=== PATIENT | male | born 1950 | race Caucasian/White ===

== ENCOUNTER 2017-10-11 08:31 | Inpatient (IN) ==
[2017-10-11] MEDS ORDERED: Ipratropium/Albuterol Neb 3 ML ONE ×2 (08:48→12:38)
[2017-10-11] MEDS ORDERED: Ipratropium/Albuterol Neb 3 ML IH ONE (08:53)
[2017-10-11 09:14] LABS: Basophils % 0.3 %; Eosinophils % 1.6 %; Hematocrit 43.7 % (37.5-50.1); Hemoglobin 13.1 g/dL (12.9-16.9); Immature Granulocytes % 0.5 % (0-4); Lymphocytes # 1.6 K/mcL (0.6-4.6); Lymphocytes % 10.1 %; Mean Corpuscular Hemoglobin 27.3 pg (28.0-33.3); Mean Corpuscular Volume 91.2 fL (83.0-100.0); Mean Platelet Volume 10.2 fL (9.4-12.4); Monocytes % 6.2 %; Platelet Count 342 K/mcL (140-400); Red Blood Count 4.79 M/mcL (4.19-5.50); Red Cell Distribution Width 12.7 % (11.5-14.5); Segmented Neutrophils % 81.3 %
[2017-10-11 09:15] LABS: Basophils # 0.1 K/mcL (0.0-0.2); Eosinophils # 0.3 K/mcL (0.0-0.6); Neutrophils # 12.5 K/mcL (1.6-8.9)
[2017-10-11 09:21] LABS: ABG Base Excess 12 mEq/L (-2 to 3); ABG HCO3 44 mEq/L (21-27); ABG Oxygen Saturation 93 % (95-98); ABG PCO2 95 mmHg (35-45); ABG PH 7.27 pH Units (7.32-7.45); ABG PO2 80 mmHg (85-104); ABG TCO2 46 mEq/L (20-26)
[2017-10-11] MEDS ORDERED: methylPREDNISolone 125 MG/2 ML VIAL IVP ONE (09:25)
[2017-10-11] MEDS ORDERED: Levofloxacin 750 MG/150 ML 750 MG/150 ML BAG IVPB ONE (09:27)
[2017-10-11 09:28] LABS: BUN/Creatinine Ratio 22 (6-26); Blood Urea Nitrogen 15 mg/dL (8-26); Chloride 97 mEq/L (98-109); Glucose 141 mg/dL (70-99); Osmolality,Calculated 303 (280-300); Potassium 3.7 mEq/L (3.5-4.5); Sodium 145 mEq/L (136-145); eGFR For African Americans > 60 (> 60); eGFR For Non-African Americans > 60 (> 60)
[2017-10-11 09:30] LABS: Carbon Dioxide 42 mEq/L (19-29)
[2017-10-11] MEDS ORDERED: Acetaminophen 325 MG TABLET PO PRN ×2 (09:41→12:38)
[2017-10-11] MEDS ORDERED: Naloxone 0.4 MG/ML INJ IVP PRN ×2 (09:41→12:38)
[2017-10-11] MEDS ORDERED: Ipratropium/Albuterol Neb 3 ML IH SCH (09:45)
--- NOTE | 2017-10-11 09:50 | Emergency Department Note ---
Disposition Clinical Impression: Acute exacerbation of chronic obstructive airways disease Community acquired pneumonia Qualifiers: Laterality: left Lung location: lower lobe of lung Qualified Code(s): J18.1 - Lobar pneumonia, unspecified organism Disposition: Admitted As Inpatient Condition: Fair Time of Disposition: 09:45 (admit) SOB HPI - General Chief Complaint: ED Shortness of Breath/Dyspnea Stated Complaint: Low O2 Time Seen by Provider: 10/11/17 09:03 Source: patient, family Mode of arrival: private vehicle Limitations: no limitations Nursing Notes Reviewed: Yes Vital Signs Reviewed: Yes - History of Present Illness Patient presents to the ED complaining of worsening cough, congestion, shortness of breath and low oxygen saturations at home. He has had a cough productive of reyes sputum for 4-5 days as well as nasal congestion, rhinorrhea and sneezing. He reports subjective chills but no fever. He has some left- sided lateral chest wall pain due to coughing. He has a long standing history of COPD and has been on home oxygen for several years. He normally wears 2 L during the day and 3 at night but had to increase his oxygen to 5 L this morning at home due to feeling short of breath. Oxygen saturation on arrival was in the upper 80s but increase to 90% after being put on 5 L. He takes azithromycin daily as prophylaxis along with Symbicort and Spiriva. He did use a DuoNeb at home prior to coming to the ED. He also takes Zyrtec and Mucinex as well. States he has had diarrhea for a few weeks after being on antibiotics for MRSA cellulitis. No abdominal pain, nausea or vomiting. No rash. No recent travel or sick contacts. 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 He has not been on steroids recently or admitted for his COPD and a few years although he has required BiPAP in the past and is a known CO2 retainer. - Related Data Home Medications Medication Instructions Recorded Confirmed Finasteride [Propecia] 5 mg PO DAILY 04/09/16 10/11/17 Furosemide [Lasix] 20 mg PO DAILY 04/09/16 10/11/17 Albuterol Neb [Proventil Neb] 2.5 mg IH Q6H 09/27/16 10/11/17 Albuterol Sulfate [Proair Hfa] 2 puff IH Q4H PRN 09/27/16 10/11/17 Budesonide/Formoterol 160/4.5 2 puff IH BIDR 09/27/16 10/11/17 [Symbicort 160/4.5] Cetirizine HCl [Zyrtec] 10 mg PO DAILY 09/27/16 10/11/17 Tiotropium [Spiriva] 18 mcg IH DAILY 09/27/16 10/11/17 Ipratropium Neb [Atrovent Neb] 0.5 mg IH Q6HR 08/09/17 10/11/17 Potassium Citrate [Urocit-K] 10 meq PO DAILY 08/10/17 10/11/17 Guaifenesin [Mucinex] 600 mg PO BID PRN 08/12/17 10/11/17 Allergies Allergy/AdvReac Type Severity Reaction Status Date / Time Penicillins Allergy See Verified 08/10/17 23:19 Comments Constitutional: Reports: chills. Denies: fever, weakness, weight change Eyes: Denies: eye pain, eye discharge, vision change ENT ED: Reports: congestion. Denies: ear pain, throat pain, dental pain, hearing loss, epistaxis, dysphagia Cardiovascular: Denies: chest pain, palpitations, dyspnea on exertion, edema, syncope Respiratory: Reports: cough, dyspnea, sputum production. Denies: wheezes, hemoptysis, stridor Gastrointestinal: Reports: diarrhea. Denies: abdominal pain, nausea, vomiting, constipation, hematemesis, melena, hematochezia Genitourinary: Denies: urgency, dysuria, frequency, hematuria Musculoskeletal: Denies: back pain, neck pain, arthralgia, myalgia Integumentary: Denies: rash, abrasion, lesions Neurological: Denies: headache, weakness, numbness, paresthesias, confusion, abnormal gait, vertigo Psychiatric: Denies: anxiety, depression, suicidal thoughts, homicidal thoughts , auditory hallucinations, visual hallucinations Endocrine: Denies: fatigue Hematological/Lymphatic: Denies: easy bleeding, easy bruising Allergic/Immunologic: Denies: facial swelling, urticaria Past Medical History - Past Medical History Medical history: Reports: arthritis, CHF, COPD, GERD, hypertension Psychiatric history: Reports: no psych history - Social History Smoking Status: Former smoker Smokeless Tobacco Status: No Alcohol use: Reports: none Drug use: Reports: none Physical Exam - General Limitations: no limitations General appearance: alert, in no apparent distress - Head Head exam: atraumatic, normocephalic, normal inspection - Eye Eye exam: Present: normal appearance, PERRL, EOMI - ENT ENT exam: normal exam, normal oropharynx, mucous membranes moist - Neck Neck exam: Present: normal inspection, full ROM, trachea midline - Chest Chest inspection: Present: normal inspection, symmetric chest wall rise - Respiratory Respiratory exam: Absent: respiratory distress - Expanded Respiratory Exam Location: rhonchi: Left, Right, Upper, Lower (scattered) - Cardiovascular Cardiovascular exam: Present: normal rhythm, tachycardia, normal heart sounds - Abdominal Exam Abdominal exam: Present: soft, Non-Tender, normal bowel sounds. Absent: tenderness, distention, guarding, rebound, rigidity - Extremities Exam Extremities exam: Present: normal inspection, full ROM, pedal edema (trace at ankles). Absent: tenderness - Back Exam Back exam: Present: normal inspection, full ROM. Absent: tenderness - Neurological Exam Neurological exam: Present: alert, oriented X3 - Psychiatric Psychiatric exam: Present: normal affect, normal mood - Skin Skin exam: Present: warm, dry, intact, normal color Course Course Narrative: Patient presents to the ED with several days of URI symptoms as well as increasing dyspnea and chills with history of COPD concerning for URI with COPD exacerbation versus possibility of pneumonia. He is slightly tachypnea but is nontoxic in appearance with adequate room air oxygen saturations on 4 L. He was given additional DuoNeb's immediately on arrival. Will give steroids while awaiting chest x-ray and laboratory studies. - Reevaluation(s) Reevaluation #1: ABG shows acute on chronic respiratory acidosis with CO2 retention. He has a white count with left shift but lactic acid is normal. Chest x-ray shows a likely left lower lobe pneumonia which is consistent with his symptoms and presentation. Will start IV antibiotics and place on BiPAP. Discussed with patient the need for admission and they are in agreement. I spoke to the patient's PCP, Dr. Currie, who has agreed to accept the patient. Awaiting bed assignment at this time. Time: 09:49 Vital Signs Temperature 97.0 F L 10/11/17 08:39 Pulse Rate 110 10/11/17 08:39 Respiratory Rate 26 10/11/17 08:39 Blood Pressure 142/82 10/11/17 08:39 O2 Sat by Pulse Oximetry 83 10/11/17 08:39 Temperature 97.0 F L 10/11/17 08:39 Pulse Rate 110 10/11/17 08:39 Respiratory Rate 26 10/11/17 08:39 Blood Pressure 142/82 10/11/17 08:39 O2 Sat by Pulse Oximetry 89 10/11/17 08:53 Oxygen Delivery Oxygen Delivery Room Air Shortness of Breath/Dyspnea - Differential Diagnosis Likely: acute exacerbation of chronic obstructive airways disease, pneumonia - Medical Records Medical records reviewed: Yes I reviewed the patient's medical records. - Lab Data Lab results reviewed: Yes I reviewed the patient's lab results. Result diagrams: 10/11/17 08:42 10/11/17 08:42 Lab Results 10/11/17 10/11/17 10/11/17 Range/Units 08:42 08:42 08:42 WBC 15.4 H (4.3-11.1) K/mcL RBC 4.79 (4.19-5.50) M/mcL Hgb 13.1 (12.9-16.9) g/dL Hct 43.7 (37.5-50.1) % MCV 91.2 (83.0-100.0) fL MCH 27.3 L (28.0-33.3) pg MCHC 30.0 L (31.6-35.5) g/dL RDW 12.7 (11.5-14.5) % Plt Count 342 (140-400) K/mcL MPV 10.2 (9.4-12.4) fL Immature Gran % 0.5 (0-4) % Seg Neutrophils % 81.3 % Lymphocytes % 10.1 % Monocytes % 6.2 % Eosinophils % 1.6 % Basophils % 0.3 % Neutrophils # 12.5 H (1.6-8.9) K/mcL Lymphocytes # 1.6 (0.6-4.6) K/mcL Monocytes # 1.0 (0.0-1.3) K/mcL Eosinophils # 0.3 (0.0-0.6) K/mcL Basophils # 0.1 (0.0-0.2) K/mcL ABG pH (7.32-7.45) pH Units ABG pCO2 (35-45) mmHg ABG pO2 (85-104) mmHg ABG HCO3 (21-27) mEq/L ABG Total CO2 (20-26) mEq/L ABG O2 Saturation (95-98) % ABG Base Excess (-2 to 3) mEq/L Sodium 145 (136-145) mEq/L Potassium 3.7 (3.5-4.5) mEq/L Chloride 97 L (98-109) mEq/L Carbon Dioxide 42 H* (19-29) mEq/L BUN 15 (8-26) mg/dL Creatinine 0.68 L (0.72-1.25) mg/dL Est GFR ( Amer) > 60 (> 60) Est GFR (Non-Af Amer) > 60 (> 60) BUN/Creatinine Ratio 22 (6-26) Glucose 141 H (70-99) mg/dL Calculated Osmolality 303 H (280-300) Lactic Acid (0.5-2.2) mmol/L Calcium 10.0 (8.6-10.8) mg/dL Troponin I 0.00 (0-0.03) ng/mL B-Natriuretic Peptide (0-100) pg/mL Person Notif of Crit 10/11/17 10/11/17 10/11/17 Range/Units 08:42 08:53 09:12 WBC (4.3-11.1) K/mcL RBC (4.19-5.50) M/mcL Hgb (12.9-16.9) g/dL Hct (37.5-50.1) % MCV (83.0-100.0) fL MCH (28.0-33.3) pg MCHC (31.6-35.5) g/dL RDW (11.5-14.5) % Plt Count (140-400) K/mcL MPV (9.4-12.4) fL Immature Gran % (0-4) % Seg Neutrophils % % Lymphocytes % % Monocytes % % Eosinophils % % Basophils % % Neutrophils # (1.6-8.9) K/mcL Lymphocytes # (0.6-4.6) K/mcL Monocytes # (0.0-1.3) K/mcL Eosinophils # (0.0-0.6) K/mcL Basophils # (0.0-0.2) K/mcL ABG pH 7.27 L (7.32-7.45) pH Units ABG pCO2 95 H* (35-45) mmHg ABG pO2 80 L (85-104) mmHg ABG HCO3 44 H (21-27) mEq/L ABG Total CO2 46 H (20-26) mEq/L ABG O2 Saturation 93 L (95-98) % ABG Base Excess 12 H (-2 to 3) mEq/L Sodium (136-145) mEq/L Potassium (3.5-4.5) mEq/L Chloride (98-109) mEq/L Carbon Dioxide (19-29) mEq/L BUN (8-26) mg/dL Creatinine (0.72-1.25) mg/dL Est GFR ( Amer) (> 60) Est GFR (Non-Af Amer) (> 60) BUN/Creatinine Ratio (6-26) Glucose (70-99) mg/dL Calculated Osmolality (280-300) Lactic Acid 1.1 (0.5-2.2) mmol/L Calcium (8.6-10.8) mg/dL Troponin I (0-0.03) ng/mL B-Natriuretic Peptide 12 (0-100) pg/mL Person Notif of Justino Gaines - Radiology Data Radiology results reviewed: Yes I reviewed the patient's radiology results. ITS Impressions Chest X-Ray 10/11/17 08:53 IMPRESSION: Patchy opacification of the left lung base, which may represent pneumonia. Follow-up examination after completion of therapy is recommended to evaluate for resolution. D/ / Sonu Rutherford MD / Sonu Rutherford MD Interpreting Provider: Sonu Rutherford MD - EKG Data EKG attestation: Yes I reviewed and interpreted this EKG. EKG shows normal: Reports: sinus rhythm Rate: Reports: tachycardia [place]/QRS: Reports: RBBB, LAHB/LAFB Interpretation: Reports: no acute changes
[2017-10-11] MEDS: Budesonide/Formoterol 160/4.5 MDI IH SCH ×2 (16:35→23:15)
[2017-10-11] MEDS: Ipratropium/Albuterol Neb 3 ML IH SCH ×3 (16:41→20:51)
--- NOTE | 2017-10-11 17:42 | Electrocardiograph Report ---
[address] [place], [place] [address] Test Date: 2017-10-11 Pat Name: Kareem Gray Department: 2000 Room: 112 Gender: M Fireman: : 1950 Requested By: Brian Delaney Order Number: [id number] Sherice MD: Kelly Crowell Measurements Intervals [place] Rate: 112 P: 72 LA: 167 QRS: -83 QRSD: 142 T: 49 QT: 347 QTc: 413 Interpretive Statements SINUS TACHYCARDIA RIGHT BUNDLE BRANCH BLOCK LEFT ANTERIOR FASCICULAR BLOCK POSSIBLE ANTERIOR MYOCARDIAL INFARCTION, OF INDETERMINATE AGE INFERIOR MYOCARDIAL INFARCTION, OF INDETERMINATE AGE Electronically Signed On 10-11-2017 17:20:01 EST by Kelly Crowell
--- NOTE | 2017-10-11 20:52 | Internal Med History&Physical ---
Date of Encounter: 10/11/17 Time of Encounter: 20:45 Assessment and Plan (1) Community acquired pneumonia Current visit: Yes Status: Acute Likely patient has community-acquired pneumonia, though he was in the hospital a few months ago and may need additional coverage if not showing appropriate improvement. He was placed on daily azithromycin per his rcis for chronic use. He will be on Levaquin, oxygen, Solu-Medrol. He is actually feeling improved. I anticipate he will be here for 3-4 days. Qualifiers: Laterality: left Lung location: lower lobe of lung Qualified Code(s): J18.1 - Lobar pneumonia, unspecified organism (2) COPD (chronic obstructive pulmonary disease) Current visit: Yes Status: Chronic Chronic history of COPD and oxygen dependent. Continue with his oxygen. May need BiPAP intermittently. He is a CO2 retainer. ABG ordered for the morning. Qualifiers: COPD type: unspecified COPD Qualified Code(s): J44.9 - Chronic obstructive pulmonary disease, unspecified (3) Carbon dioxide retention Current visit: Yes Status: Acute History of CO2 retention this morning. Follow-up ABG will be planned. Careful not to over oxygenate. (4) HTN (hypertension) Current visit: Yes Status: Chronic History of hypertension but currently taking only Lasix. Blood pressure is controlled. Qualifiers: Hypertension type: essential hypertension Qualified Code(s): I10 - Essential (primary) hypertension (5) Acute exacerbation of chronic obstructive airways disease Current visit: Yes Status: Acute Likely acute exacerbation of COPD related to his pneumonia. We will continue his current pulmonary toilet/inhalers and nebulizer treatments. Solu-Medrol has been added (6) History of MRSA infection Current visit: Yes Status: Resolved Previous history of MRSA with his left upper extremity abscess a few months ago. He will be in contact precautions. (7) Frequent loose stools Current visit: Yes Status: Chronic He has a history of chronic loose stools for the past few months or so. He thinks this is related to his previous antibiotic use. Nonbloody. No abdominal findings. However, we will check his stool for C. difficile. Qualifiers: Diarrhea type: unspecified type Qualified Code(s): R19.7 - Diarrhea, unspecified Internal Medicine - H&P: HPI Chief complaint: I got short of breath today and my saturations were in the 70s Admitted From: Emergency Dept Plans for Post Hospital Care: Home History of present illness: Mr. Gray is a 67 year old male with known history of COPD with previous smoking history, hypertension, status post surgery for Arnold Chiari Malformation who is oxygen dependent at home. He states he has been getting ill for the past 2-3 weeks, "just not feeling well". His oxygen saturation would drop in the morning to about 89%. After coffee in the morning and a breathing treatment he would get it up to 95-96%. Then he started having chills. Then he started coughing up "extra stuff" than his baseline sputum." They were round spot balls". Thick and reyes in color. Then 2 weeks ago it became frothy and loose and now occurring every day. Then he started having episodes where he is "fighting more for air" during exertion. The past 2 nights he has not had any sleep because of coughing and shortness of breath. This morning his saturations were in the 70s and he bumped up his oxygen to 5 L and was brought to the emergency room. In the ER he was found to be having saturations in the upper 80s and he was placed on BiPAP. He was found to have PCO2 of 95. Chest x-ray showed left lower lobe pneumonia. He was found to have leukocytosis with white blood count of 15,000. After admission he has been on and off BiPAP, has received his Levaquin, nebulizer treatments etc. He is now feeling much better. He is on 3 L per nasal cannula and was able to have long discussion without getting short of breath. He denies any fever but he has had chills. No recent travel. He has a rcis at both [place] as well as [facility]. I believe he is planning on future lung surgery of some sort. Past Med Surg Social Fam HX - Past Medical History Medical history: arthritis, COPD, GERD, hypertension, other (History of Arnold- Chiari malformation) Psychiatric history: no psych history - Past Surgical History Surgical History[facility], [facility] - Social History Smoking Status: Former smoker Smokeless Tobacco Status: No Alcohol use: none Drug use: none Current living situation: Home Activity Level: Independent ambulation Recent Out of Country Travel Within the Last 8 Weeks: No Exposure or Possible Exposure to Illness During Travel: No - Family History Father Adopted: No Family Member Ethnicity: Non- Living Status: Hx Family Cardiac Disorders: Yes (CHF) Hx Family Respiratory Disorders: No Hx Family Cancer: No Hx Family GI Disorders: No Hx Family Endocrine Disorder: No Hx Family Neuromuscular Disorders: No Hx Family Neurologic Disorders: No Hx Family HEENT Disorders: No Hx Family Autoimmune Disorders: No Daughter Adopted: No Family Member Ethnicity: Non- Hx Family Cardiac Disorders: Yes (HTN) Hx Family Respiratory Disorders: No Hx Family Cancer: No Hx Family GI Disorders: Yes (GERD, Cholelithiasis) Hx Family Endocrine Disorder: No Hx Family Neuromuscular Disorders: Yes (Migraine) Hx Family Neurologic Disorders: No Hx Family HEENT Disorders: No Hx Family Autoimmune Disorders: No Brother Living Status: Still Living Hx Family Cancer: Yes (Lymphoma) Internal Medicine - H&P: Meds Finasteride [Propecia] 5 mg PO DAILY 04/09/16 [History] Furosemide [Lasix] 20 mg PO DAILY PRN 04/09/16 [History] Albuterol Neb [Proventil Neb] 2.5 mg IH Q6H 09/27/16 [History] Albuterol Sulfate [Proair Hfa] 2 puff IH Q4H PRN 09/27/16 [History] Budesonide/Formoterol 160/4.5 [Symbicort 160/4.5] 2 puff IH BIDR 09/27/16 [ History] Cetirizine HCl [Zyrtec] 10 mg PO DAILY 09/27/16 [History] Tiotropium [Spiriva] 18 mcg IH DAILY 09/27/16 [History] Ipratropium Neb [Atrovent Neb] 0.5 mg IH Q6HR 08/09/17 [History] Guaifenesin [Mucinex] 600 mg PO BID PRN 08/12/17 [History] 3 Allergy/AdvReac Type Severity Reaction Status Date / Time Penicillins Allergy See Verified 08/10/17 23:19 Comments - Constitutional Constitutional: chills, malaise, no fever(s), no falls - EENT Eyes: no change in vision Ears: no ear discharge, no ear pain Nose, mouth and throat: no neck mass, no sinus pain, no sore throat - Cardiovascular Cardiovascular ROS IM: dyspnea, dyspnea on exertion, no chest pain, no irregular heart rhythm, no palpitations, no syncope - Respiratory Respiratory: dyspnea, dyspnea on exertion, wheezing, excessive phlegm production , change in phlegm color - Gastrointestinal Gastrointestinal: diarrhea (He has 2-3 loose bowel movements per day since his antibiotic use in the hospital in [place]), loose stools, no abdominal pain , no heartburn, no vomiting - Genitourinary Genitourinary ROS male: no dysuria, no urinary frequency - Musculoskeletal Musculoskeletal ROS IM: no arthralgias, no muscle weakness - Integumentary Integumentary IM: no rash - Neurological Neurological ROS: no confusion, no focal weakness - Psychiatric Psychiatric: no anxiety, no depression, no hallucinations - Hematologic/Lymphatic Hematologic/Lymphatic: no lymphadenopathy - Allergic/Immunologic Allergic/Immunologic: wheezing, no uticaria - Constitutional Vitals: Temp Pulse Resp BP Pulse Ox 97.6 F 109 16 158/74 95 10/11/17 20:23 10/11/17 20:23 10/11/17 11:05 10/11/17 20:23 10/11/17 20:23 General appearance: Present: A&O X 3, no acute distress (He was able to speak in full sentences, he is relaxed and calm, reclining at 45 degree angle) - Eye Eye exam: Present: EOMI, PERRL. Absent: conjunctival injection - ENT ENT exam: Present: mucous membranes moist, normal oropharynx Additional comments: Right TM is normal. Left ear canal is impacted with cerumen - Neck Neck exam general surgery: Absent: lymphadenopathy, tenderness Additional comments: He has a surgically fused neck from Arnold-Chiari malformation surgery - Respiratory Additional comments: Diminished breath sounds throughout. Atelectatic crackles at the bases. Expiratory phase prolonged throughout. End expiratory wheeze particularly at the right base. - Cardiovascular Cardiovascular exam: Present: distant heart sounds, RRR, +S1, +S2. Absent: systolic murmur - GI/Abdominal GI/Abdominal exam: Present: soft. Absent: guarding, mass, tenderness Additional comments: Small reducible periumbilical hernia - Extremities Exam Extremities exam: Absent: calf tenderness, pedal edema, tenderness Additional comments: His feet are cool but normal color. He has slowed capillary refill. I do not feel dorsalis pedis pulses. Chronic venous stasis dermatitis and hyperpigmentation noted on his pretibial areas Internal Med - H&P Results - Labs CBC & Chem 7: 10/11/17 08:42 10/11/17 08:42 Labs: Labs have been reviewed. White blood cell count elevated at 15,000. PCO2 elevated in the 90s. Chest x-ray shows left lower lobe infiltrate - EKG Data EKG comments: 10/11/17 21:01 EKG printed interpretation seems consistent with previous EKG readings. - Diagnostic Studies Chest x-ray Additional comments: Chest x-ray read as having had left lower lobe infiltrate - VTE Reasons for not Prescribing Prophylaxis: Treatment not Indicated - Low risk for VTE
[2017-10-12] MEDS: Ipratropium/Albuterol Neb 3 ML IH SCH ×7 (02:42→23:57)
[2017-10-12] MEDS: methylPREDNISolone 125 MG/2 ML VIAL IVP SCH ×4 (02:49→23:57)
[2017-10-12 05:54] LABS: Basophils % 0.1 %; Hematocrit 39.5 % (37.5-50.1); Hemoglobin 11.9 g/dL (12.9-16.9); Immature Granulocytes % 0.4 % (0-4); Lymphocytes % 6.1 %; Mean Corpuscular HGB Conc 30.1 g/dL (31.6-35.5); Mean Corpuscular Hemoglobin 27.7 pg (28.0-33.3); Mean Corpuscular Volume 91.9 fL (83.0-100.0); Mean Platelet Volume 10.4 fL (9.4-12.4); Monocytes # 0.5 K/mcL (0.0-1.3); Monocytes % 3.1 %; Neutrophils # 15.1 K/mcL (1.6-8.9); Platelet Count 300 K/mcL (140-400); Red Cell Distribution Width 12.9 % (11.5-14.5); Segmented Neutrophils % 90.3 %
[2017-10-12] MEDS: *HR* Enoxaparin 40 MG/0.4 ML SYRINGE SQ SCH (06:04)
[2017-10-12 06:05] LABS: BUN/Creatinine Ratio 20 (6-26); Blood Urea Nitrogen 12 mg/dL (8-26); Calcium 9.8 mg/dL (8.6-10.8); Chloride 97 mEq/L (98-109); Glucose 142 mg/dL (70-99); Osmolality,Calculated 302 (280-300); Potassium 4.3 mEq/L (3.5-4.5); Sodium 145 mEq/L (136-145); eGFR For African Americans > 60 (> 60); eGFR For Non-African Americans > 60 (> 60)
[2017-10-12 06:26] LABS: Carbon Dioxide 42 mEq/L (19-29)
[2017-10-12] MEDS: Loratadine 10 MG TABLET PO SCH (08:03)
[2017-10-12] MEDS: Furosemide 20 MG TABLET PO SCH (08:03)
[2017-10-12] MEDS: Potassium Citrate 10 MEQ TABLET.ER PO SCH (08:03)
[2017-10-12] MEDS: Finasteride 5 MG TABLET PO SCH (08:03)
[2017-10-12] MEDS: Levofloxacin 750 MG/150 ML 750 MG/150 ML BAG IVPB SCH (08:04)
[2017-10-12] MEDS: Budesonide/Formoterol 160/4.5 MDI IH SCH ×2 (09:56→20:10)
[2017-10-12 10:52] LABS: ABG PH 7.21 pH Units (7.32-7.45)
[2017-10-12 10:53] LABS: ABG HCO3 46 mEq/L (21-27); ABG PO2 74 mmHg (85-104)
[2017-10-12 10:54] LABS: ABG Base Excess 18 mEq/L (-2 to 3); ABG Oxygen Saturation 89 % (95-98)
[2017-10-12 10:56] LABS: ABG PCO2 114 mmHg (35-45)
--- NOTE | 2017-10-12 11:28 | Internal Med Progress Note ---
Date of Encounter: 10/12/17 Time of Encounter: 10:30 - Assessment and plan (1) Anxiety Current Visit: Yes Status: Acute Assessment and plan: He is currently not tolerating the BiPAP. I explained to the patient and why is critical for him to use this they're both going to have him try. He feels "do it. I wrote for his home BuSpar. He says it works for him effectively on a when necessary basis and usually works pretty quickly. (2) COPD (chronic obstructive pulmonary disease) Current Visit: Yes Status: Chronic Assessment and plan: He is demonstrating severe CO2 retention and respiratory acidosis off the BiPAP. He agrees to restart it. We'll follow his progress. His mentation is clear and eats objectively in respiratory distress at this time. He'll continue his steroids and Levaquin. His O2 sat is not too high. Qualifiers: COPD type: unspecified COPD Qualified Code(s): J44.9 - Chronic obstructive pulmonary disease, unspecified (3) CHF (congestive heart failure) Current Visit: No Status: Acute Assessment and plan: He has no peripheral edema. Qualifiers: Congestive heart failure type: systolic Congestive heart failure chronicity : chronic Qualified Code(s): I50.22 - Chronic systolic (congestive) heart failure (4) GERD (gastroesophageal reflux disease) Current Visit: No Status: Acute Assessment and plan: We will give him his home Zantac. Qualifiers: Esophagitis presence: esophagitis presence not specified Qualified Code(s) : K21.9 - Gastro-esophageal reflux disease without esophagitis (5) HTN (hypertension) Current Visit: Yes Status: Chronic Assessment and plan: He is having some mild elevation of the systolic blood pressure. Can follow that for right now. Qualifiers: Hypertension type: essential hypertension Qualified Code(s): I10 - Essential (primary) hypertension (6) Community acquired pneumonia Current Visit: Yes Status: Acute Assessment and plan: He continues on Levaquin. This seems to be the etiology of his COPD exacerbation and decompensation. White count went from 15.4-16.7 but he's on IV steroids. Hemoglobin dropped a little from 13.1-11.9. Qualifiers: Laterality: left Lung location: lower lobe of lung Qualified Code(s): J18.1 - Lobar pneumonia, unspecified organism (7) Carbon dioxide retention Current Visit: Yes Status: Acute Assessment and plan: Mentation is clear but is markedly elevated CO2 is worrisome. Again he and are committed to using the BiPAP. I'm hesitant to treat him with benzodiazepines and due to his CO2 retention. (8) PVCs (premature ventricular contractions) Current Visit: Yes Status: Acute Assessment and plan: I will await the soda dispenser's interpretation of today's EKG as far rhythm. I' m not certain is in atrial flutter. He did have a previous event monitor in March 2016 which showed only sinus tachycardia and occasional to frequent PVCs. Reviewing his office record I can't find evidence for previous atrial fibrillation or flutter. His EKG today is not significantly changed from yesterday's. Other than that he seems which are chronic for him - Time Spent With Patient Greater than 35 minutes - Subjective Interval history: Patient is seen today for multiple problems. Per my discussion with him # PULMONARY he says right now he does not feel immediately short of breath. He feels the steroids have helped him some. He got panicky with the BiPAP and has not been tolerating that this morning at all. He takes BuSpar at home and feels if he Doesn't that he do better. He and his are aware that he can have confusion with high PCO2 and he says he feels that just a little bit at times she's had trouble finding the this morning word choice that he wants. #CARDIAC he denies chest pain or palpitations. His confirms that since childhood he' s had premature beats and his daughter has the same thing. He used to have lower extremity edema but he says since he started on finasteride that has completely resolved. #GI he states he takes Zantac at home and let refill on that. He denies abdominal discomfort or GERD symptoms at this time. Dr. Currie ordered C. difficile studies on his stool yesterday but has not had a bowel movement since then. He apparently has mild intermittent chronic diarrhea. # REVIEW OF SYSTEMS as above. - Constitutional Vitals: Temp Pulse Resp BP Pulse Ox 97.1 F L 85 16 147/71 96 10/12/17 07:00 10/12/17 07:00 10/12/17 07:00 10/12/17 07:00 10/12/17 07:00 General appearance: Present: mild distress (He has just mild increased work of breathing but it does not worsen with extended conversation.), A&O X 3, pleasant , no acute distress (He was able to speak in full sentences, he is relaxed and calm, reclining at 45 degree angle), answers questions appropriately - Head Head exam: Present: atraumatic, normocephalic - Eye Eye exam: Present: normal appearance, conjuntiva pink, sclera anicteric. Absent : conjunctival injection - Respiratory Respiratory exam: Present: decreased breath sounds, rhonchi, wheezes. Absent: accessory muscle use, rales, respiratory distress, tachypnea Additional comments: He has bilateral fairly diffuse rhonchi and wheezes. He has decreased breath sounds at the right base. He overall is moving air comfortably. Mentation is clear. - Cardiovascular Cardiovascular exam: Present: RRR, +S1, +S2, tachycardia. Absent: diastolic murmur, gallop, irregular rhythm, rubs, systolic murmur Additional comments: I don't appreciate any rupture beats by auscultation or radial pulse palpation at the time of my exam. He did have some premature beats on his EKG this morning. - Extremities Exam Extremities exam: Present: warm, radial pulses palpable and symmetrical. Absent : calf tenderness, cyanotic, pedal edema - Neurological Exam Neurological exam: Present: oriented X3, no focal deficits. Absent: pronater drift, facial droop, speech deficit - Skin Skin exam: Present: dry, intact Additional comments: He has venous stasis changes on the lower extremities bilaterally, left worse than right. Internal Medicine: Result - Labs CBC & Chem 7: 10/12/17 05:30 10/12/17 05:30 Labs: Short CBC 10/12/17 Range/Units 05:30 WBC 16.7 H (4.3-11.1) K/mcL Hgb 11.9 L (12.9-16.9) g/dL Hct 39.5 (37.5-50.1) % Plt Count 300 (140-400) K/mcL Neutrophils # 15.1 H (1.6-8.9) K/mcL BMP 10/12/17 05:30 Sodium 145 Potassium 4.3 Chloride 97 L Carbon Dioxide 42 H* BUN 12 Creatinine 0.59 L Glucose 142 H Calcium 9.8 - ABG Interpretation Interpretation: ABG interpreted by me ABG results: ABG ABG pH 7.21 pH Units (7.32-7.45) L 10/12/17 06:00 ABG pCO2 114 mmHg (35-45) H* 10/12/17 06:00 ABG pO2 74 mmHg (85-104) L 10/12/17 06:00 ABG O2 Saturation 89 % (95-98) L 10/12/17 06:00 Interpretation: respiratory acidosis - EKG Interpretation EKG Interpreted by Myself: Yes (I compared his EKG from today to yesterday's. He still has sinus tachycardi) - EKG Data He tells Rhythm: NSR (The computer interprets this as atrial flutter but I'm not sure I see a significant change from yesterday's rhythm which was interpreted as sinus tachycardia. He still has bifascicular block menses right bundle branch block and left anterior fascicular block) and possible old anterior and inferior MIs.Today's EKG are frequent PVCs.) - Prior EKG Data Prior EKG available for review: yes - VTE Reasons for not Prescribing Prophylaxis: Treatment not Indicated - Low risk for VTE Consult Discharge Plan - Plan Referrals: Jasiel Currie MD [Primary Care Provider] -
[2017-10-12] MEDS: Famotidine 20 MG TABLET PO SCH ×2 (15:04→20:10)
[2017-10-12] MEDS: Tiotropium 18 MCG inhalation IH SCH (15:06)
[2017-10-12 18:56] LABS: VBG HCO3 46 mEq/L (21-27); VBG PCO2 108 mmHg (41-51); VBG PH 7.24 pH Units (7.32-7.42); VBG PO2 88 mmHg (25-50)
[2017-10-13] MEDS: Ipratropium/Albuterol Neb 3 ML IH SCH ×5 (04:08→20:27)
[2017-10-13 05:06] LABS: ABG Base Excess 13 mEq/L (-2 to 3); ABG HCO3 42 mEq/L (21-27); ABG Oxygen Saturation 89 % (95-98); ABG PCO2 78 mmHg (35-45); ABG PH 7.34 pH Units (7.32-7.45); ABG PO2 63 mmHg (85-104); ABG TCO2 45 mEq/L (20-26)
[2017-10-13] MEDS: *HR* Enoxaparin 40 MG/0.4 ML SYRINGE SQ SCH (06:10)
[2017-10-13] MEDS: Finasteride 5 MG TABLET PO SCH (08:13)
[2017-10-13] MEDS: Potassium Citrate 10 MEQ TABLET.ER PO SCH (08:13)
[2017-10-13] MEDS: Loratadine 10 MG TABLET PO SCH (08:13)
[2017-10-13] MEDS: Furosemide 20 MG TABLET PO SCH (08:13)
[2017-10-13] MEDS: Famotidine 20 MG TABLET PO SCH ×2 (08:14→20:26)
[2017-10-13] MEDS: methylPREDNISolone 125 MG/2 ML VIAL IVP SCH ×2 (08:14→17:36)
[2017-10-13] MEDS: Levofloxacin 750 MG/150 ML 750 MG/150 ML BAG IVPB SCH (08:15)
[2017-10-13] MEDS: Budesonide/Formoterol 160/4.5 MDI IH SCH ×2 (10:30→22:37)
--- NOTE | 2017-10-13 13:00 | Internal Med Progress Note ---
Date of Encounter: 10/13/17 Time of Encounter: 12:05 - Assessment and plan (1) Anxiety Current Visit: Yes Status: Acute Assessment and plan: Better with BuSpar. This is been keyed to him using his BiPAP. (2) COPD (chronic obstructive pulmonary disease) Current Visit: Yes Status: Chronic Assessment and plan: ABG is much improved control. Continue Levaquin and steroids and other treatment. He feels he is getting better and we are both encouraged by that. Qualifiers: COPD type: unspecified COPD Qualified Code(s): J44.9 - Chronic obstructive pulmonary disease, unspecified (3) CHF (congestive heart failure) Current Visit: No Status: Acute Assessment and plan: Continue as at present. Qualifiers: Congestive heart failure type: systolic Congestive heart failure chronicity : chronic Qualified Code(s): I50.22 - Chronic systolic (congestive) heart failure (4) GERD (gastroesophageal reflux disease) Current Visit: No Status: Acute Assessment and plan: Symptoms are currently well controlled. Qualifiers: Esophagitis presence: esophagitis presence not specified Qualified Code(s) : K21.9 - Gastro-esophageal reflux disease without esophagitis (5) HTN (hypertension) Current Visit: Yes Status: Chronic Assessment and plan: At goal. Qualifiers: Hypertension type: essential hypertension Qualified Code(s): I10 - Essential (primary) hypertension (6) Community acquired pneumonia Current Visit: Yes Status: Acute Assessment and plan: Continue Levaquin. Qualifiers: Laterality: left Lung location: lower lobe of lung Qualified Code(s): J18.1 - Lobar pneumonia, unspecified organism (7) Carbon dioxide retention Current Visit: Yes Status: Acute Assessment and plan: Much improved. Continue BiPAP. His acidosis has resolved. (8) PVCs (premature ventricular contractions) Current Visit: Yes Status: Acute Assessment and plan: No premature beats noted on exam today.I don't have a confirmed report yet on yesterday's EKG. I'll repeat his EKG tomorrow. - Time Spent With Patient Greater than 35 minutes - Subjective Interval history: I interviewed and examined the patient today. #PULMONARY he feels he stiffly done much better today than yesterday. He's been wearing his BiPAP as requested. He's off it right now on nasal oxygen his lunch he says he does feel little tight with that. He is on the BuSpar and that seems to have helped his tolerance of the BiPAP. #CARDIAC he again denies chest discomfort or palpitations. #GI he is on famotidine. - Constitutional Vitals: Temp Pulse Resp BP Pulse Ox 98.9 F 109 17 146/63 99 10/13/17 07:00 10/13/17 09:00 10/13/17 07:00 10/13/17 07:00 10/13/17 07:00 General appearance: Present: A&O X 3, pleasant, no acute distress (He was able to speak in full sentences, he is relaxed and calm, reclining at 45 degree angle ), answers questions appropriately. Absent: mild distress - Respiratory Respiratory exam: Present: rales, rhonchi (He has rhonchi best heard at the right base.), wheezes (He has wheezes best heard anteriorly.). Absent: accessory muscle use - Cardiovascular Cardiovascular exam: Present: RRR, +S1, +S2. Absent: diastolic murmur, gallop, rubs, systolic murmur - Extremities Exam Extremities exam: Present: calf tenderness, cyanotic, warm. Absent: pedal edema Internal Medicine: Result - Labs CBC & Chem 7: 10/12/17 05:30 10/12/17 05:30 - ABG Interpretation ABG results: ABG shows marked improvement in with now a normal pH and PCO2 much improved to 78. PO2 and O2 sat are fine given that we don't want to decrease his hypoxic drive. ABG pH 7.34 pH Units (7.32-7.45) 10/13/17 04:58 ABG pCO2 78 mmHg (35-45) H* 10/13/17 04:58 ABG pO2 63 mmHg (85-104) L 10/13/17 04:58 ABG O2 Saturation 89 % (95-98) L 10/13/17 04:58 - VTE Reasons for not Prescribing Prophylaxis: Treatment not Indicated - Low risk for VTE Consult Discharge Plan - Plan Referrals: Jasiel Currie MD [Primary Care Provider] -
[2017-10-13] MEDS: Tiotropium 18 MCG inhalation IH SCH (15:33)
[2017-10-14] MEDS: Ipratropium/Albuterol Neb 3 ML IH SCH ×7 (00:18→23:47)
[2017-10-14] MEDS: methylPREDNISolone 125 MG/2 ML VIAL IVP SCH ×3 (00:19→17:08)
[2017-10-14] MEDS: *HR* Enoxaparin 40 MG/0.4 ML SYRINGE SQ SCH (05:21)
--- NOTE | 2017-10-14 07:05 | Internal Med Progress Note ---
Date of Encounter: 10/14/17 Time of Encounter: 06:57 - Assessment and plan (1) Community acquired pneumonia Current Visit: Yes Status: Acute Assessment and plan: He was admitted with pneumonia in the left lower lobe. He continues with Levaquin. We will plan a follow-up chest x-ray. No fever or chills. White blood cell count remained elevated over the weekend, but he did also receive steroids Qualifiers: Laterality: left Lung location: lower lobe of lung Qualified Code(s): J18.1 - Lobar pneumonia, unspecified organism (2) COPD (chronic obstructive pulmonary disease) Current Visit: Yes Status: Chronic Assessment and plan: Chronic COPD and history of CO2 retention. Overall his pH and carbon dioxide status improved over the weekend. We will try to wean him off BiPAP and see what he can tolerate today and try to keep his saturations by nasal cannula in the low 90s. Baseline ABG on BiPAP pending for this morning and then we will decide how to go from there. Qualifiers: COPD type: unspecified COPD Qualified Code(s): J44.9 - Chronic obstructive pulmonary disease, unspecified (3) Carbon dioxide retention Current Visit: Yes Status: Chronic Assessment and plan: Plan as above. (4) HTN (hypertension) Current Visit: Yes Status: Chronic Assessment and plan: Long-standing history of hypertension and is stable. Continue the same medication. Qualifiers: Hypertension type: essential hypertension Qualified Code(s): I10 - Essential (primary) hypertension (5) Acute exacerbation of chronic obstructive airways disease Current Visit: Yes Status: Acute Assessment and plan: Patient is receiving IV steroids. Overall he is feeling better. (6) History of MRSA infection Current Visit: Yes Status: Resolved Assessment and plan: History of MRSA infection in the skin. He is currently in contact precaution. (7) Frequent loose stools Current Visit: Yes Status: Resolved Assessment and plan: On admission he said he was having loose stools, frequent loose stools for the past few months. Testing for C. difficile was initiated, however he has had no bowel movement since and that order was canceled. Unlikely that he has C. difficile Qualifiers: Diarrhea type: unspecified type Qualified Code(s): R19.7 - Diarrhea, unspecified - Subjective Interval history: Patient states that he feels "500% better than when he came in". Everyday feeling better. He has had some sputum production through the night. He was able to be off BiPAP during the day yesterday, but he said he requested to go back on it. Nurse reports the patient slept well through the night. Patient has been able to get up and go to and from the toilet. He has been eating well. He has had no bowel movement since being here, his loose stool situation apparently is resolved. - Constitutional Vitals: Temp Pulse Resp BP Pulse Ox 97.2 F L 82 24 135/70 97 10/14/17 04:00 10/14/17 04:00 10/14/17 04:00 10/14/17 04:00 10/14/17 04:00 General appearance: Present: A&O X 3, pleasant, no acute distress (He is not nervous or anxious today. He remained on his BiPAP.), answers questions appropriately. Absent: mild distress - Respiratory Additional comments: Markedly diminished breath sounds with virtually no air exchange heard posteriorly. Anteriorly has slight end expiratory wheeze but poor air exchange as per usual. No crackles or rhonchi heard. - Cardiovascular Cardiovascular exam: Present: distant heart sounds, RRR, +S1, +S2. Absent: systolic murmur - GI/Abdominal Additional comments: Patient has normal bowel sounds. His abdomen looks distended today. It is diffusely mildly tender on palpation. Some mild tympany. - Extremities Exam Extremities exam: Absent: calf tenderness, pedal edema Internal Medicine: Result - Labs CBC & Chem 7: 10/12/17 05:30 10/12/17 05:30 Labs: Labs for today are pending. - ABG Interpretation ABG results: ABG ABG pH 7.34 pH Units (7.32-7.45) 10/13/17 04:58 ABG pCO2 78 mmHg (35-45) H* 10/13/17 04:58 ABG pO2 63 mmHg (85-104) L 10/13/17 04:58 ABG O2 Saturation 89 % (95-98) L 10/13/17 04:58 - VTE Reasons for not Prescribing Prophylaxis: Treatment not Indicated - Low risk for VTE Consult Discharge Plan - Plan Referrals: Jasiel Currie MD [Primary Care Provider] -
[2017-10-14 07:56] LABS: Basophils % 0.1 %; Hematocrit 40.5 % (37.5-50.1); Immature Granulocytes % 0.7 % (0-4); Lymphocytes # 0.8 K/mcL (0.6-4.6); Lymphocytes % 6.1 %; Mean Corpuscular HGB Conc 29.6 g/dL (31.6-35.5); Mean Corpuscular Hemoglobin 27.8 pg (28.0-33.3); Mean Corpuscular Volume 93.8 fL (83.0-100.0); Mean Platelet Volume 10.3 fL (9.4-12.4); Monocytes # 0.5 K/mcL (0.0-1.3); Monocytes % 3.8 %; Neutrophils # 11.1 K/mcL (1.6-8.9); Platelet Count 372 K/mcL (140-400); Red Blood Count 4.32 M/mcL (4.19-5.50); Red Cell Distribution Width 12.8 % (11.5-14.5); Segmented Neutrophils % 89.3 %
[2017-10-14 08:17] LABS: ABG Base Excess 15 mEq/L (-2 to 3); ABG HCO3 48 mEq/L (21-27); ABG Oxygen Saturation 94 % (95-98); ABG PCO2 107 mmHg (35-45); ABG PH 7.26 pH Units (7.32-7.45); ABG PO2 87 mmHg (85-104); ABG TCO2 51 mEq/L (20-26)
[2017-10-14 08:59] LABS: BUN/Creatinine Ratio 31 (6-26); Blood Urea Nitrogen 20 mg/dL (8-26); Calcium 10.2 mg/dL (8.6-10.8); Chloride 97 mEq/L (98-109); Glucose 158 mg/dL (70-99); Osmolality,Calculated 310 (280-300); Potassium 4.6 mEq/L (3.5-4.5); Sodium 147 mEq/L (136-145); eGFR For African Americans > 60 (> 60); eGFR For Non-African Americans > 60 (> 60)
[2017-10-14 09:02] LABS: Carbon Dioxide 44 mEq/L (19-29)
[2017-10-14] MEDS: Budesonide/Formoterol 160/4.5 MDI IH SCH ×2 (09:55→22:03)
[2017-10-14] MEDS: Tiotropium 18 MCG inhalation IH SCH (09:56)
[2017-10-14] MEDS: Potassium Citrate 10 MEQ TABLET.ER PO SCH (10:03)
[2017-10-14] MEDS: Finasteride 5 MG TABLET PO SCH (10:03)
[2017-10-14] MEDS: Loratadine 10 MG TABLET PO SCH (10:04)
[2017-10-14] MEDS: Furosemide 20 MG TABLET PO SCH (10:04)
[2017-10-14] MEDS: Famotidine 20 MG TABLET PO SCH ×2 (10:05→22:03)
[2017-10-14] MEDS: Levofloxacin 750 MG/150 ML 750 MG/150 ML BAG IVPB SCH (10:05)
--- NOTE | 2017-10-14 18:54 | Event Note ---
Date of Encounter: 10/14/17 Time of Encounter: 18:51 Patient said he was doing well this morning "500% better" but tonight he thinks that he is "down about 20%." He has been on BiPAP most on the day. He has not had a bowel movement. He denies a cardiac Chest pain. He is fairly comfortable when he is on the BiPAP. He thinks he has had less sputum production today. I appreciate Dr. Land's recommendations regarding use of the BiPAP to the night and when necessary during the day. Try to keep his oxygen saturations at 89%. We will cut back the steroids as recommended. He has diminished breath sounds anterior and posteriorly. No crackles heard. Heart is regular rate and rhythm with a cannot appreciate a murmur. His abdomen is still distended and gaseous with normal bowel sounds. It is not tender. Ankles show no significant edema. I have recommended a suppository, he wants to wait until tomorrow and I will give him a Dulcolax orally tonight. I discussed the plan that if he is not showing improvement the option for transfer to [facility] or [facility] discussed
[2017-10-14] MEDS: MethylPREDNISolone 40 MG/ML VIAL IVP SCH (23:48)
[2017-10-15] MEDS: Ipratropium/Albuterol Neb 3 ML IH SCH ×5 (05:00→21:25)
[2017-10-15] MEDS: *HR* Enoxaparin 40 MG/0.4 ML SYRINGE SQ SCH (05:00)
[2017-10-15 06:57] LABS: Hematocrit 39.3 % (37.5-50.1); Hemoglobin 11.8 g/dL (12.9-16.9); Immature Granulocytes % 1.1 % (0-4); Lymphocytes # 0.8 K/mcL (0.6-4.6); Lymphocytes % 9.2 %; Mean Corpuscular Hemoglobin 27.5 pg (28.0-33.3); Mean Corpuscular Volume 91.6 fL (83.0-100.0); Mean Platelet Volume 10.7 fL (9.4-12.4); Monocytes # 0.6 K/mcL (0.0-1.3); Monocytes % 6.7 %; Neutrophils # 6.8 K/mcL (1.6-8.9); Platelet Count 371 K/mcL (140-400); Red Blood Count 4.29 M/mcL (4.19-5.50); Red Cell Distribution Width 12.8 % (11.5-14.5)
--- NOTE | 2017-10-15 06:57 | Internal Med Progress Note ---
Date of Encounter: 10/15/17 Time of Encounter: 06:46 - Assessment and plan (1) Community acquired pneumonia Current Visit: Yes Status: Acute Assessment and plan: His checks x-ray shows clearing of the left lower lobe infiltrate. Continue with the Levaquin. White blood cell count is now normal as well. Continue the same. Qualifiers: Laterality: left Lung location: lower lobe of lung Qualified Code(s): J18.1 - Lobar pneumonia, unspecified organism (2) COPD (chronic obstructive pulmonary disease) Current Visit: Yes Status: Chronic Assessment and plan: His severe COPD is now stabilizing after BiPAP with improved PCO2 and pH. We will continue the same settings and same plan. Will plan to liberalize his activity, be out of bed, try to get a shower etc. and use oxygen by nasal cannula. We will then use BiPAP when necessary during the day per patient symptoms and wear continuously through the night Qualifiers: COPD type: unspecified COPD Qualified Code(s): J44.9 - Chronic obstructive pulmonary disease, unspecified (3) Carbon dioxide retention Current Visit: Yes Status: Chronic Assessment and plan: See the note above. Continue BiPAP at night and when necessary during the day (4) HTN (hypertension) Current Visit: Yes Status: Chronic Assessment and plan: His blood pressure has increased. I have started lisinopril. He was on this previously as an outpatient in the past Qualifiers: Hypertension type: essential hypertension Qualified Code(s): I10 - Essential (primary) hypertension (5) Acute exacerbation of chronic obstructive airways disease Current Visit: Yes Status: Acute Assessment and plan: See the above notes. His Solu-Medrol is being weaned downward. (6) History of MRSA infection Current Visit: Yes Status: Resolved Assessment and plan: No active infection noted. He was hospitalized at [facility] with soft tissue abscess with MRSA (7) Frequent loose stools Current Visit: Yes Status: Resolved Qualifiers: Diarrhea type: unspecified type Qualified Code(s): R19.7 - Diarrhea, unspecified - Subjective Interval history: Patient states he did not sleep the best last night but feels better this morning. He states he feels some rattling in his chest but nothing to cough up. He would like to be able to be up get a shower today. He denies any cardiac type chest pain. Overall he feels better. He has been on the BiPAP all night. - Constitutional Vitals: Temp Pulse Resp BP Pulse Ox 98.1 F 94 24 179/97 95 10/15/17 04:25 10/15/17 04:25 10/14/17 18:31 10/15/17 04:25 10/15/17 05:04 General appearance: Present: A&O X 3, pleasant, no acute distress, answers questions appropriately. Absent: mild distress Exam: He is sitting up at the edge of the bed on his BiPAP. He is alert and appropriate. He is talkative. - Respiratory Additional comments: Markedly diminished breath sounds posteriorly as usual. No wheezing or rhonchi or rales heard. Anteriorly better air exchange. No wheezing or rales. - Cardiovascular Cardiovascular exam: Present: distant heart sounds, +S1, +S2 - Extremities Exam Extremities exam: Absent: calf tenderness, pedal edema, tenderness Internal Medicine: Result - Labs CBC & Chem 7: 10/15/17 06:38 10/15/17 06:38 Labs: Today's labs are not available in the record currently. However, his white blood cell count is now normal. His PCO2 is down to 87. He has a normal pH is 7.3. The rest of his lab work looks very reasonable at this point. His chest x -ray shows clearing of the left lower lobe infiltrate. Overall everything has improved. 10/14/17 Range/Units 07:40 WBC 12.4 H (4.3-11.1) K/mcL Hgb 12.0 L (12.9-16.9) g/dL Hct 40.5 (37.5-50.1) % Plt Count 372 (140-400) K/mcL Neutrophils # 11.1 H (1.6-8.9) K/mcL BMP 10/14/17 07:40 Sodium 147 H Potassium 4.6 H Chloride 97 L Carbon Dioxide 44 H* BUN 20 Creatinine 0.64 L Glucose 158 H Calcium 10.2 - ABG Interpretation ABG results: ABG ABG pH 7.26 pH Units (7.32-7.45) L 10/14/17 07:55 ABG pCO2 107 mmHg (35-45) H* 10/14/17 07:55 ABG pO2 87 mmHg (85-104) 10/14/17 07:55 ABG O2 Saturation 94 % (95-98) L 10/14/17 07:55 Additional comments: His pH is now normal 7.3. His PCO2 is down to the 80s. Overall a very big improvement with BiPAP - Diagnostic Studies Chest x-ray Additional comments: Chest x-ray shows clearing of the left lower lobe infiltrate. - VTE Reasons for not Prescribing Prophylaxis: Treatment not Indicated - Low risk for VTE Consult Discharge Plan - Plan Referrals: Jasiel Currie MD [Primary Care Provider] -
[2017-10-15 07:09] LABS: BUN/Creatinine Ratio 29 (6-26); Blood Urea Nitrogen 19 mg/dL (8-26); Calcium 9.6 mg/dL (8.6-10.8); Chloride 96 mEq/L (98-109); Glucose 152 mg/dL (70-99); Osmolality,Calculated 305 (280-300); Potassium 4.6 mEq/L (3.5-4.5); Sodium 145 mEq/L (136-145); eGFR For African Americans > 60 (> 60); eGFR For Non-African Americans > 60 (> 60)
[2017-10-15 07:16] LABS: Carbon Dioxide 40 mEq/L (19-29)
[2017-10-15 08:02] LABS: ABG Base Excess 16 mEq/L (-2 to 3); ABG HCO3 47 mEq/L (21-27); ABG Oxygen Saturation 93 % (95-98); ABG PCO2 87 mmHg (35-45); ABG PH 7.34 pH Units (7.32-7.45); ABG PO2 78 mmHg (85-104); ABG TCO2 50 mEq/L (20-26)
[2017-10-15] MEDS: Tiotropium 18 MCG inhalation IH SCH (08:54)
[2017-10-15] MEDS: Budesonide/Formoterol 160/4.5 MDI IH SCH ×2 (08:54→21:25)
[2017-10-15] MEDS: Finasteride 5 MG TABLET PO SCH (09:28)
[2017-10-15] MEDS: Famotidine 20 MG TABLET PO SCH ×2 (09:28→21:25)
[2017-10-15] MEDS: Potassium Citrate 10 MEQ TABLET.ER PO SCH (09:28)
[2017-10-15] MEDS: Levofloxacin 750 MG/150 ML 750 MG/150 ML BAG IVPB SCH (09:29)
[2017-10-15] MEDS: MethylPREDNISolone 40 MG/ML VIAL IVP SCH ×2 (09:29→16:53)
[2017-10-15] MEDS: Furosemide 20 MG TABLET PO SCH (09:29)
[2017-10-15] MEDS: Loratadine 10 MG TABLET PO SCH (09:29)
[2017-10-16] MEDS: Ipratropium/Albuterol Neb 3 ML IH SCH ×6 (00:18→22:50)
[2017-10-16] MEDS: MethylPREDNISolone 40 MG/ML VIAL IVP SCH ×3 (00:18→18:01)
[2017-10-16] MEDS: *HR* Enoxaparin 40 MG/0.4 ML SYRINGE SQ SCH (05:17)
[2017-10-16 07:27] LABS: ABG Base Excess 15 mEq/L (-2 to 3); ABG HCO3 47 mEq/L (21-27); ABG Oxygen Saturation 93 % (95-98); ABG PCO2 100 mmHg (35-45); ABG PH 7.28 pH Units (7.32-7.45); ABG PO2 83 mmHg (85-104); ABG TCO2 50 mEq/L (20-26)
[2017-10-16] MEDS: Tiotropium 18 MCG inhalation IH SCH (09:08)
[2017-10-16] MEDS: Finasteride 5 MG TABLET PO SCH (09:09)
[2017-10-16] MEDS: Famotidine 20 MG TABLET PO SCH ×2 (09:09→22:49)
[2017-10-16] MEDS: Potassium Citrate 10 MEQ TABLET.ER PO SCH (09:09)
[2017-10-16] MEDS: Furosemide 20 MG TABLET PO SCH (09:09)
[2017-10-16] MEDS: Budesonide/Formoterol 160/4.5 MDI IH SCH ×2 (09:09→22:51)
[2017-10-16] MEDS: Loratadine 10 MG TABLET PO SCH (09:09)
[2017-10-16] MEDS: Levofloxacin 750 MG/150 ML 750 MG/150 ML BAG IVPB SCH (09:11)
--- NOTE | 2017-10-16 10:57 | Internal Med Progress Note ---
Date of Encounter: 10/16/17 Time of Encounter: 10:52 - Assessment and plan (1) Community acquired pneumonia Status: Acute Assessment and plan: His pneumonia is showing clearing. Symptomatically improving. We will finish 7 days of antibiotic treatment. Qualifiers: Laterality: left Lung location: lower lobe of lung Qualified Code(s): J18.1 - Lobar pneumonia, unspecified organism (2) COPD (chronic obstructive pulmonary disease) Status: Chronic Assessment and plan: Continues with chronic COPD. He is a retainer. BiPAP is helpful. Showing improvement. Qualifiers: COPD type: unspecified COPD Qualified Code(s): J44.9 - Chronic obstructive pulmonary disease, unspecified (3) Carbon dioxide retention Status: Chronic Assessment and plan: Carbon dioxide retention improved with BiPAP. Without it is PCO2 is over 100. He would benefit from BiPAP every night and during the day when necessary. (4) HTN (hypertension) Status: Chronic Assessment and plan: His blood pressure was elevated and lisinopril was restarted. Qualifiers: Hypertension type: essential hypertension Qualified Code(s): I10 - Essential (primary) hypertension (5) Acute exacerbation of chronic obstructive airways disease Status: Acute (6) History of MRSA infection Status: Resolved Assessment and plan: No active infection noted. (7) Frequent loose stools Status: Resolved Qualifiers: Diarrhea type: unspecified type Qualified Code(s): R19.7 - Diarrhea, unspecified - Subjective Interval history: Patient takes he continues to improve. He denies any cardiac type chest pain. His dyspnea is under good control. BiPAP at night is helpful. He is increasing his activity level. - Constitutional Vitals: Temp Pulse Resp BP Pulse Ox 97.9 F 79 20 146/73 96 10/16/17 06:56 10/16/17 06:56 10/16/17 06:56 10/16/17 06:56 10/16/17 06:56 General appearance: Present: A&O X 3, pleasant, no acute distress, answers questions appropriately. Absent: mild distress - Respiratory Additional comments: Diminished breath sounds throughout. Slight wheeze heard anteriorly. No respiratory distress. - Cardiovascular Cardiovascular exam: Present: distant heart sounds, RRR, +S1, +S2 - Extremities Exam Additional comments: Only trace amount of ankle edema. No calf tenderness. Internal Medicine: Result - Labs CBC & Chem 7: 10/15/17 06:38 10/15/17 06:38 Labs: Labs have been reviewed. - ABG Interpretation ABG results: ABG ABG pH 7.28 pH Units (7.32-7.45) L 10/16/17 07:21 ABG pCO2 100 mmHg (35-45) H* 10/16/17 07:21 ABG pO2 83 mmHg (85-104) L 10/16/17 07:21 ABG O2 Saturation 93 % (95-98) L 10/16/17 07:21 Additional comments: PCO2 up to 100 when not using BiPAP. - VTE Reasons for not Prescribing Prophylaxis: Treatment not Indicated - Low risk for VTE Consult Discharge Plan - Plan Instructions: Chronic Obstructive Pulmonary Disease (DC) Referrals: Jasiel Currie MD [Primary Care Provider] - 10/21/17 8:45 am Prescriptions: Lisinopril [Zestril] 10 mg PO DAILY #30 tablet predniSONE [Prednisone] 10 mg PO DAILY #30 tab.ds.pk
--- NOTE | 2017-10-16 12:23 | Electrocardiograph Report ---
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
--- NOTE | 2017-10-16 18:19 | Electrocardiograph Report ---
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
--- NOTE | 2017-10-16 18:20 | Electrocardiograph Report ---
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: Vargas : 1950 Requested By: Av Aj Order Number: [id number] Reading MD: Adrien Salamanca DO Measurements Intervals [place] Rate: 94 P: 63 FL: 170 QRS: -51 QRSD: 149 T: 40 QT: 364 QTc: 416 Interpretive Statements SINUS RHYTHM WITH OCCASIONAL VENTRICULAR PREMATURE COMPLEXES RIGHT BUNDLE BRANCH BLOCK [120+ ms QRS DURATION, UPRIGHT V1, 40+ ms S IN I/aVL/V4/V5/V6] LEFT ANTERIOR FASCICULAR BLOCK [QRS AXIS <= -45, QR IN I, RS IN II] POSSIBLE ANTERIOR MYOCARDIAL INFARCTION [30 ms Q WAVE IN V3/V4, OR R < 0.2 mV IN V4], OF INDETERMINATE AGE Electronically Signed On 10-16-2017 18:18:48 EST by Adrien Salamanca DO
[2017-10-17] MEDS: MethylPREDNISolone 40 MG/ML VIAL IVP SCH ×3 (01:53→09:17)
[2017-10-17] MEDS: Ipratropium/Albuterol Neb 3 ML IH SCH ×4 (01:53→12:55)
[2017-10-17] MEDS: *HR* Enoxaparin 40 MG/0.4 ML SYRINGE SQ SCH (07:05)
[2017-10-17] MEDS: Potassium Citrate 10 MEQ TABLET.ER PO SCH (09:17)
[2017-10-17] MEDS: Loratadine 10 MG TABLET PO SCH (09:17)
[2017-10-17] MEDS: Furosemide 20 MG TABLET PO SCH (09:17)
[2017-10-17] MEDS: Finasteride 5 MG TABLET PO SCH (09:17)
[2017-10-17] MEDS: Famotidine 20 MG TABLET PO SCH (09:17)
[2017-10-17] MEDS: Levofloxacin 750 MG/150 ML 750 MG/150 ML BAG IVPB SCH (09:18)
[2017-10-17] MEDS: Budesonide/Formoterol 160/4.5 MDI IH SCH (09:23)
[2017-10-17] MEDS: Tiotropium 18 MCG inhalation IH SCH (09:24)
[2017-10-17 11:48] VITALS: BP 147/75
--- NOTE | 2017-10-17 14:30 | Discharge Summary ---
Date of Encounter: 10/17/17 Time of Encounter: 14:22 - Discharge Diagnosis (1) Community acquired pneumonia Priority: Primary Status: Acute Comments: Patient was admitted with pneumonia in the left lower lobe area. He had hypoxia and dyspnea. He was treated with Levaquin and had resolution of the infiltrate and his symptoms improved dramatically. He will finish 7 fold days of Levaquin. Qualifiers: Laterality: left Lung location: lower lobe of lung Qualified Code(s): J18.1 - Lobar pneumonia, unspecified organism (2) COPD (chronic obstructive pulmonary disease) Priority: Secondary Status: Chronic Comments: Chronic COPD and consideration for lung transplant at [facility] [place] in the future. He is oxygen dependent. He received his usual nebulas or treatments and his MDIs. He was given Solu-Medrol for exacerbation of his COPD. He is found to have CO2 retention as well. He is now improved. Qualifiers: COPD type: unspecified COPD Qualified Code(s): J44.9 - Chronic obstructive pulmonary disease, unspecified (3) Carbon dioxide retention Priority: Secondary Status: Acute Comments: He is found to have carbon dioxide retention on admission. He did well with BiPAP. With BiPAP at night consistently we can drive his PCO2 down to 80s or 90s. Without the BiPAP his PCO2 is over 100. With improvement in his pulmonary status with steroids and nebulizer treatments, and treatment for his pneumonia with Levaquin he is now markedly improved. He is benefited from BiPAP at night and use when necessary during the day. With recommendation from his learning coach he will use BiPAP every night and uses BiPAP during the day when necessary. He should be able to qualify because of his PCO2 of at least 100. Symptomatically he is markedly improved. He has now increased his activity level. He is able to ambulate in the hallway. He feels ready to go home. He will follow-up with learning coach and eventually with [facility] [place]. (4) HTN (hypertension) Priority: Secondary Status: Chronic Comments: He has a history of hypertension, but he was able to be off lisinopril for a while. During this hospital stay however his blood pressure elevated and lisinopril was restarted. He is having no cardiac symptoms. Continue to monitor as an outpatient. Qualifiers: Hypertension type: essential hypertension Qualified Code(s): I10 - Essential (primary) hypertension (5) Acute exacerbation of chronic obstructive airways disease Priority: Secondary Status: Acute Comments: Acute exacerbation was treated with IV steroids. His pneumonia was treated with Levaquin. His carbon dioxide retention was treated with BiPAP. He is now markedly improved. He will be on a taper of steroids at discharge. Continue BiPAP at night and during the day when necessary - Discharge Medications Prescriptions: Lisinopril [Zestril] 10 mg PO DAILY #30 tablet predniSONE [Prednisone] 10 mg PO DAILY #30 tab.ds.pk Home Medications: Finasteride [Propecia] 5 mg PO DAILY 04/09/16 [History] Furosemide [Lasix] 20 mg PO DAILY PRN 04/09/16 [History] Albuterol Neb [Proventil Neb] 2.5 mg IH Q6H 09/27/16 [History] Albuterol Sulfate [Proair Hfa] 2 puff IH Q4H PRN 09/27/16 [History] Budesonide/Formoterol 160/4.5 [Symbicort 160/4.5] 2 puff IH BIDR 09/27/16 [ History] Cetirizine HCl [Zyrtec] 10 mg PO DAILY 09/27/16 [History] Tiotropium [Spiriva] 18 mcg IH DAILY 09/27/16 [History] Ipratropium Neb [Atrovent Neb] 0.5 mg IH Q6HR 08/09/17 [History] Guaifenesin [Mucinex] 600 mg PO BID PRN 08/12/17 [History] Acetaminophen [Tylenol] 650 mg PO Q6HR PRN tablet 10/17/17 [Rx] Buspirone HCl [Buspar] 15 mg PO BID tablet 10/17/17 [Rx] Famotidine [Pepcid] 20 mg PO BID tablet 10/17/17 [Rx] Lisinopril [Zestril] 10 mg PO DAILY #30 tablet 10/17/17 [Rx] Potassium Citrate [Urocit-K] 10 meq PO DAILY tablet.er 10/17/17 [Rx] predniSONE [Prednisone] 10 mg PO DAILY #30 tab.ds.pk 10/17/17 [Rx] Allergies/Adverse Reactions: 3 Allergy/AdvReac Type Severity Reaction Status Date / Time Penicillins Allergy See Verified 09/30/17 23:19 Comments Procedures/tests Complete & Pendin10/11/17 10/12/17 10/12/17 09:12 06:00 18:47 ABG pH 7.27 L 7.21 L ABG pCO2 95 H* 114 H* ABG pO2 80 L 74 L ABG HCO3 44 H 46 H ABG Total CO2 46 H ABG O2 Saturation 93 L 89 L ABG Base Excess 12 H 18 H VBG pH 7.24 L VBG pCO2 108 H* VBG pO2 88 H VBG HCO3 46 H 10/13/17 10/14/17 10/15/17 04:58 07:55 07:55 ABG pH 7.34 7.26 L 7.34 ABG pCO2 78 H* 107 H* 87 H* ABG pO2 63 L 87 78 L ABG HCO3 42 H 48 H 47 H ABG Total CO2 45 H 51 H 50 H ABG O2 Saturation 89 L 94 L 93 L ABG Base Excess 13 H 15 H 16 H VBG pH VBG pCO2 VBG pO2 VBG HCO3 10/16/17 07:21 ABG pH 7.28 L ABG pCO2 100 H* ABG pO2 83 L ABG HCO3 47 H ABG Total CO2 50 H ABG O2 Saturation 93 L ABG Base Excess 15 H VBG pH VBG pCO2 VBG pO2 VBG HCO3 Laboratory Results - last 48 hr 10/16/17 07:21 ABG pH 7.28 L ABG pCO2 100 H* ABG pO2 83 L ABG HCO3 47 H ABG Total CO2 50 H ABG O2 Saturation 93 L ABG Base Excess 15 H Person Notif of Justino Hoodssthor Tenorio Laboratory Results - last 72 hr 10/14/17 10/15/17 10/15/17 23:00 06:38 06:38 WBC 8.2 RBC 4.29 Hgb 11.8 L Hct 39.3 MCV 91.6 MCH 27.5 L MCHC 30.0 L RDW 12.8 Plt Count 371 MPV 10.7 Immature Gran % 1.1 Seg Neutrophils % 83.0 Lymphocytes % 9.2 Monocytes % 6.7 Eosinophils % 0.0 Basophils % 0.0 Neutrophils # 6.8 Lymphocytes # 0.8 Monocytes # 0.6 Eosinophils # 0.0 Basophils # 0.0 ABG pH ABG pCO2 ABG pO2 ABG HCO3 ABG Total CO2 ABG O2 Saturation ABG Base Excess Sodium 145 Potassium 4.6 H Chloride 96 L Carbon Dioxide 40 H* BUN 19 Creatinine 0.65 L Est GFR ( Amer) > 60 Est GFR (Non-Af Amer) > 60 BUN/Creatinine Ratio 29 H Glucose 152 H Calculated Osmolality 305 H Calcium 9.6 Nasal Screen MRSA (PCR) Positive A Person Notif of Crit 10/15/17 10/16/17 07:55 07:21 WBC RBC Hgb Hct MCV MCH MCHC RDW Plt Count MPV Immature Gran % Seg Neutrophils % Lymphocytes % Monocytes % Eosinophils % Basophils % Neutrophils # Lymphocytes # Monocytes # Eosinophils # Basophils # ABG pH 7.34 7.28 L ABG pCO2 87 H* 100 H* ABG pO2 78 L 83 L ABG HCO3 47 H 47 H ABG Total CO2 50 H 50 H ABG O2 Saturation 93 L 93 L ABG Base Excess 16 H 15 H Sodium Potassium Chloride Carbon Dioxide BUN Creatinine Est GFR ( Amer) Est GFR (Non-Af Amer) BUN/Creatinine Ratio Glucose Calculated Osmolality Calcium Nasal Screen MRSA (PCR) Person Notif of Crit Jose Tenorio Date of admission: 10/11/17 21:13 Primary care physician: Jasiel Currie MD Discharging clinician: Jasiel Currie Anticipated date of discharge: 10/17/17 - Patient Status Disposition: Home, Self-Care Condition: Good Functional capacity at discharge: independent ambulation Overall status at discharge: patient is progressing back to baseline - Discharge Instructions Instructions: Chronic Obstructive Pulmonary Disease (DC) Follow Up With: Jasiel Currie MD [Primary Care Provider] - 10/21/17 8:45 am - Diet and Activity Activity: increase activity as tolerated Diet: low salt diet Interval History: Overnight he did well with his BiPAP. He feels like he is ready to go home. He has been able to be ambulatory in the hallway. We will finally able to qualify him for BiPAP. He will be discharged to home. Hospital course: Mr. Gray is a 67 year old male with known history of oxygen dependent COPD was admitted with exacerbation of his breathing with left lower lobe pneumonia, exacerbation of COPD and carbon dioxide retention. Please see the diagnoses above. - Time Spent with Patient Total time spent providing and/or coordinating discharge services: - Constitutional Vitals: Temp Pulse Resp BP Pulse Ox 98.6 F 102 20 147/75 94 10/17/17 11:00 10/17/17 11:00 10/17/17 11:00 10/17/17 11:00 10/17/17 11:00 General appearance: Present: A&O X 3, pleasant, no acute distress, answers questions appropriately. Absent: mild distress - Respiratory Additional comments: Very diminished breath sounds posteriorly. Anteriorly better air exchange and clear - Cardiovascular Cardiovascular exam: Present: distant heart sounds, RRR, +S1, +S2. Absent: systolic murmur - GI/Abdominal GI/Abdominal exam: Present: soft. Absent: tenderness - Extremities Exam Extremities exam: Absent: calf tenderness, pedal edema - VTE Reasons for not Prescribing Prophylaxis: Treatment not Indicated - Low risk for VTE
== END 2017-10-17 16:30 | disposition home or self-care (01) | DRG 194 ==
LOC: EMEROOGRE 08:31 → INPGRE 08:31
PROVIDERS: ADMIT Family Medicine; ATTEND Family Medicine

== ENCOUNTER 2018-10-31 20:57 | Inpatient (IN) ==
--- NOTE | 2018-10-31 21:05 | Emergency Department Note ---
Disposition Clinical Impression: Pneumonia Disposition: Admitted As Inpatient Referrals: Jasiel Currie MD [Primary Care Provider] - Time of Disposition: 22:40 SOB HPI - General Stated Complaint: difficulty breathing x 3 days Time Seen by Provider: 10/31/18 21:05 Source: patient Mode of arrival: private vehicle Limitations: no limitations Nursing Notes Reviewed: Yes Vital Signs Reviewed: Yes - History of Present Illness 68-year-old obese white male presents emergency department via private vehicle complaining of difficulty breathing. He has a history of COPD and is home oxygen dependent. He says he is usually on 2-3 L of nasal cannulated oxygen and he had to turn it up to 3-year-old a today. He says that a few weeks ago started out having a sinus infection and has had an increase in his chest congestion and has had a productive cough of yellow "sticky" sputum. He says that he had cold chills today but is not sure that he had a fever. He also noted that he had palpitations and thinks that his pulse rate is fast. He has had 3 breathing treatments today. He has not taken any steroids. - Related Data Home Medications Medication Instructions Recorded Confirmed Finasteride [Propecia] 5 mg PO DAILY 04/09/16 09/11/18 Furosemide [Lasix] 20 mg PO DAILY PRN 04/09/16 09/11/18 Albuterol Neb [Proventil Neb] 2.5 mg IH Q6H 09/27/16 09/11/18 Albuterol Sulfate [Proair Hfa] 2 puff IH Q4H PRN 09/27/16 04/17/18 Cetirizine HCl [Zyrtec] 10 mg PO DAILY 09/27/16 04/17/18 Tiotropium [Spiriva] 18 mcg IH DAILY 09/27/16 09/11/18 Ipratropium Neb [Atrovent Neb] 0.5 mg IH Q6HR 08/09/17 09/11/18 Guaifenesin [Mucinex] 600 mg PO BID PRN 08/12/17 04/17/18 Albuterol Sulfate [Proair Hfa] 2 puff IH Q4H PRN 04/17/18 09/11/18 Azithromycin [Zithromax] 250 mg PO DAILY 04/17/18 04/17/18 Budesonide/Formoterol 160/4.5 2 puff IH BID 04/17/18 09/11/18 [Symbicort 160/4.5] Fluticasone Propionate Nasal 1 each IH DAILY 04/17/18 04/17/18 [Flonase] Ibuprofen [Ibu] 800 mg PO Q8H PRN 04/17/18 09/11/18 Lisinopril [Zestril] 20 mg PO DAILY 04/17/18 04/17/18 raNITIdine HCl [Zantac] 150 mg PO DAILY 04/17/18 04/17/18 Previous Rx's Medication Instructions Recorded Acetaminophen [Tylenol] 650 mg PO Q6HR PRN tablet 10/17/17 Buspirone HCl [Buspar] 15 mg PO BID tablet 10/17/17 Potassium Citrate [Urocit-K] 10 meq PO DAILY tablet.er 10/17/17 Doxycycline 100 mg PO BID #14 capsule 09/09/18 Allergies Allergy/AdvReac Type Severity Reaction Status Date / Time Penicillins Allergy See Verified 10/31/18 21:31 Comments Sulfa (Sulfonamide AdvReac Muscle Pain Verified 10/31/18 21:31 Antibiotics) All systems ED: reviewed and negative except as stated. Constitutional: Denies: fever, chills, weakness, weight change Eyes: Denies: eye pain, eye discharge, vision change ENT ED: Denies: ear pain, throat pain, dental pain, hearing loss, epistaxis, congestion, dysphagia Cardiovascular: Reports: as per HPI, palpitations Respiratory: Reports: as per HPI, dyspnea, wheezes, sputum production. Denies: hemoptysis Gastrointestinal: Denies: abdominal pain, nausea, vomiting, diarrhea, constipation, hematemesis, melena, hematochezia Genitourinary: Denies: urgency, dysuria, frequency, hematuria Musculoskeletal: Denies: back pain, neck pain, arthralgia, myalgia Integumentary: Denies: rash, abrasion, lesions Neurological: Denies: headache, weakness, numbness, paresthesias, confusion, abnormal gait, vertigo Psychiatric: Denies: anxiety, depression, suicidal thoughts, homicidal thoughts, auditory hallucinations, visual hallucinations Endocrine: Denies: fatigue Hematological/Lymphatic: Denies: easy bleeding, easy bruising Allergic/Immunologic: Denies: facial swelling, urticaria Past Medical History - Past Medical History Medical history: Reports: arthritis, COPD, GERD, hypertension, other Surgical history: Reports: orthopedic, other Psychiatric history: Reports: no psych history - Social History Smoking Status: Former smoker Smokeless Tobacco Status: No Alcohol use: Reports: none Drug use: Reports: none Physical Exam - General Limitations: no limitations General appearance: alert, in no apparent distress, obese - Head Head exam: atraumatic, normocephalic, normal inspection - Eye Eye exam: Present: normal appearance, PERRL, EOMI - ENT ENT exam: normal exam, normal oropharynx, mucous membranes moist - Neck Neck exam: Present: normal inspection, full ROM, trachea midline - Chest Chest inspection: Present: normal inspection, symmetric chest wall rise - Respiratory Respiratory exam: Present: other (Breath sounds are significantly decreased bilaterally. They are equal. Expiratory wheezes are present. Diffuse rhonchi throughout. No Rales.). Absent: respiratory distress - Cardiovascular Cardiovascular exam: Present: regular rate, normal rhythm, normal heart sounds - Abdominal Exam Abdominal exam: Present: soft, Non-Tender. Absent: tenderness, distention, guarding, rebound, rigidity, organomegaly, mass - Extremities Exam Extremities exam: Present: normal inspection, full ROM. Absent: tenderness, pedal edema - Back Exam Back exam: Present: normal inspection, full ROM. Absent: tenderness, CVA tenderness (R), CVA tenderness (L) - Neurological Exam Neurological exam: Present: alert, oriented X3, CN II-XII intact. Absent: motor sensory deficit - Psychiatric Psychiatric exam: Present: normal affect, normal mood - Skin Skin exam: Present: warm, dry, intact, normal color Course Course Narrative: The patient remained stable throughout his emergency department stay. Following his Solu-Medrol and DuoNeb he had some improvement in his breathing, but continued to be dyspneic. Blood cultures were drawn and the patient was given Levaquin 750 mg IV. I spoke with Dr. Currie at 2245 and the patient will be admi tted to [place] for further care. I discussed this admission with the patient and his because the patient is on the lung transplant list at [facility]. His relates that she will notify the transplant center of his illness and he will be temporarily removed from the list and following his recovery they will notify the transplant team and he will be placed back on the list. They relate that he is not expected "to go to [place] for something like this." Vital Signs Temperature 97.7 F 10/31/18 21:20 Pulse Rate 117 10/31/18 21:20 Respiratory Rate 24 10/31/18 21:20 Blood Pressure 146/64 10/31/18 21:20 O2 Sat by Pulse Oximetry 94 10/31/18 21:20 Temperature 97.7 F 10/31/18 21:20 Pulse Rate 117 10/31/18 21:20 Respiratory Rate 24 10/31/18 21:20 Blood Pressure 146/64 10/31/18 21:20 O2 Sat by Pulse Oximetry 94 10/31/18 21:20 Oxygen Delivery Oxygen Delivery Nasal Cannula Shortness of Breath/Dyspnea - Medical Records Medical records reviewed: Yes I reviewed the patient's medical records. - Lab Data Lab results reviewed: Yes I reviewed the patient's lab results. Result diagrams: 10/31/18 21:50 10/31/18 21:50 Lab Results 10/31/18 10/31/18 10/31/18 Range/Units 21:50 21:50 21:50 WBC 21.7 H (4.3-11.1) K/mcL RBC 4.48 (4.19-5.50) M/mcL Hgb 12.7 L (12.9-16.9) g/dL Hct 39.5 (37.5-50.1) % MCV 88.2 (83.0-100.0) fL MCH 28.3 (28.0-33.3) pg MCHC 32.2 (31.6-35.5) g/dL RDW 12.7 (11.5-14.5) % Plt Count 344 (140-400) K/mcL MPV 10.4 (9.4-12.4) fL Immature Gran % 0.4 (0-4) % Seg Neutrophils % 79.0 % Lymphocytes % 9.9 % Monocytes % 10.0 % Eosinophils % 0.4 % Basophils % 0.3 % Neutrophils # 17.1 H (1.6-8.9) K/mcL Lymphocytes # 2.2 (0.6-4.6) K/mcL Monocytes # 2.2 H (0.0-1.3) K/mcL Eosinophils # 0.1 (0.0-0.6) K/mcL Basophils # 0.1 (0.0-0.2) K/mcL Sodium 137 (136-145) mEq/L Potassium 3.2 L (3.5-5.1) mEq/L Chloride 97 L (98-107) mEq/L Carbon Dioxide 34 H (23-29) mEq/L BUN 18 (8-23) mg/dL Creatinine 0.59 L (0.70-1.30) mg/dL Est GFR ( Amer) > 60 (> 60) Est GFR (Non-Af Amer) > 60 (> 60) BUN/Creatinine Ratio 31 H (6-26) Glucose 127 H (70-105) mg/dL Calculated Osmolality 287 (280-300) Lactic Acid 0.8 (0.5-2.2) mmol/L Calcium 9.4 (8.6-10.3) mg/dL Total Bilirubin 0.6 (0.3-1.0) mg/dL AST 30 (13-39) Units/L ALT 40 (7-52) Units/L Alkaline Phosphatase 105 H (34-104) Units/L Serum Total Protein 6.8 (6.4-8.9) g/dL Albumin 4.2 (3.5-5.7) g/dL Globulin 2.6 (2.4-3.5) g/dL Albumin/Globulin Ratio 1.6 (1.1-2.2) - Radiology Data Radiology results reviewed: Yes I reviewed the patient's radiology results. Chest 2 views: IMPRESSION: 1. New left basilar lung infiltrate, involving the left lower lobe and lingula, concerning for pneumonia. 2. Pulmonary vascular congestion. D/ / Jony Moore MD / Jony Moore MD
[2018-10-31] MEDS ORDERED: 0.9 % Sodium Chloride 500 ML IVC ONE (21:31)
[2018-10-31] MEDS ORDERED: Ipratropium/Albuterol Neb 3 ML IH ONE (21:31)
[2018-10-31] MEDS ORDERED: methylPREDNISolone 125 MG/2 ML VIAL IVP ONE (21:31)
[2018-10-31 22:00] LABS: Basophils # 0.1 K/mcL (0.0-0.2); Basophils % 0.3 %; Eosinophils # 0.1 K/mcL (0.0-0.6); Eosinophils % 0.4 %; Hematocrit 39.5 % (37.5-50.1); Hemoglobin 12.7 g/dL (12.9-16.9); Immature Granulocytes % 0.4 % (0-4); Lymphocytes % 9.9 %; Mean Corpuscular HGB Conc 32.2 g/dL (31.6-35.5); Mean Corpuscular Hemoglobin 28.3 pg (28.0-33.3); Mean Corpuscular Volume 88.2 fL (83.0-100.0); Mean Platelet Volume 10.4 fL (9.4-12.4); Monocytes # 2.2 K/mcL (0.0-1.3); Neutrophils # 17.1 K/mcL (1.6-8.9); Platelet Count 344 K/mcL (140-400); Red Blood Count 4.48 M/mcL (4.19-5.50); Red Cell Distribution Width 12.7 % (11.5-14.5)
[2018-10-31 22:05] LABS: Lymphocytes # 2.2 K/mcL (0.6-4.6)
[2018-10-31 22:18] LABS: Alanine Aminotransferase 40 Units/L (7-52); Albumin 4.2 g/dL (3.5-5.7); Albumin/Globulin Ratio 1.6 (1.1-2.2); Alkaline Phosphatase 105 Units/L (34-104); Aspartate Amino Transferase 30 Units/L (13-39); BUN/Creatinine Ratio 31 (6-26); Bilirubin,Total 0.6 mg/dL (0.3-1.0); Blood Urea Nitrogen 18 mg/dL (8-23); Calcium 9.4 mg/dL (8.6-10.3); Carbon Dioxide 34 mEq/L (23-29); Chloride 97 mEq/L (98-107); Globulin 2.6 g/dL (2.4-3.5); Glucose 127 mg/dL (70-105); Osmolality,Calculated 287 (280-300); Potassium 3.2 mEq/L (3.5-5.1); Sodium 137 mEq/L (136-145); Total Protein 6.8 g/dL (6.4-8.9); eGFR For Non-African Americans > 60 (> 60)
[2018-10-31] MEDS ORDERED: Levofloxacin 750 MG/150 ML 750 MG/150 ML BAG IVPB ONE (22:24)
[2018-10-31] MEDS ORDERED: Ipratropium/Albuterol Neb 3 ML IH PRN (23:18)
[2018-11-01] MEDS ORDERED: Naloxone 0.4 MG/ML INJ IVP PRN (00:05)
[2018-11-01] MEDS ORDERED: *HR* HYDROcodone/Acet 5/325 mg TABLET PO PRN (00:05)
[2018-11-01] MEDS ORDERED: Furosemide 20 MG TABLET PO PRN (00:05)
[2018-11-01] MEDS ORDERED: Ibuprofen 400 MG TABLET PO PRN (00:05)
[2018-11-01] MEDS: 0.9 % Sodium Chloride 1,000 ML IVC SCH ×2 (00:56→22:16)
[2018-11-01] MEDS: *HR* Enoxaparin 40 MG/0.4 ML SYRINGE SQ SCH (06:28)
[2018-11-01] MEDS: Acetaminophen 325 MG TABLET PO PRN ×3 (06:32→21:34)
[2018-11-01] MEDS: Azithromycin 250 MG TABLET PO SCH (08:08)
[2018-11-01] MEDS: Finasteride 5 MG TABLET PO SCH (08:09)
[2018-11-01] MEDS: Levofloxacin 750 MG/150 ML 750 MG/150 ML BAG IVPB SCH (08:09)
[2018-11-01] MEDS ORDERED: Fluticasone Propionate Nasal 50 MCG/SPRAY BOTTLE NS SCH (09:00)
[2018-11-01] MEDS ORDERED: Levofloxacin 750 MG/150 ML 750 MG/150 ML BAG IVPB SCH (09:00)
[2018-11-01] MEDS ORDERED: Loratadine 10 MG TABLET PO SCH (09:00)
[2018-11-01] MEDS ORDERED: Ibuprofen 600 MG TABLET PO SCH (09:00)
[2018-11-01] MEDS ORDERED: Famotidine 20 MG TABLET PO SCH (09:00)
[2018-11-01 09:19] LABS: Basophils % 0.1 %; Hematocrit 39.2 % (37.5-50.1); Hemoglobin 12.5 g/dL (12.9-16.9); Immature Granulocytes % 0.4 % (0-4); Lymphocytes # 0.7 K/mcL (0.6-4.6); Lymphocytes % 3.4 %; Mean Corpuscular HGB Conc 31.9 g/dL (31.6-35.5); Mean Corpuscular Hemoglobin 28.1 pg (28.0-33.3); Mean Corpuscular Volume 88.1 fL (83.0-100.0); Mean Platelet Volume 11.2 fL (9.4-12.4); Monocytes # 0.3 K/mcL (0.0-1.3); Monocytes % 1.6 %; Platelet Count 349 K/mcL (140-400); Red Blood Count 4.45 M/mcL (4.19-5.50); Red Cell Distribution Width 12.7 % (11.5-14.5); Segmented Neutrophils % 94.5 %
[2018-11-01 09:32] LABS: BUN/Creatinine Ratio 21 (6-26); Blood Urea Nitrogen 11 mg/dL (8-23); Calcium 9.2 mg/dL (8.6-10.3); Carbon Dioxide 33 mEq/L (23-29); Chloride 98 mEq/L (98-107); Glucose 247 mg/dL (70-105); Osmolality,Calculated 294 (280-300); Potassium 3.8 mEq/L (3.5-5.1); Sodium 138 mEq/L (136-145); eGFR For Non-African Americans > 60 (> 60)
[2018-11-01] MEDS: Ipratropium/Albuterol Neb 3 ML IH PRN ×2 (09:52→13:52)
[2018-11-01] MEDS: Budesonide/Formoterol 160/4.5 1 PUFF INH IH SCH ×2 (10:18→20:30)
[2018-11-01] MEDS: Tiotropium 18 MCG inhalation IH SCH (10:20)
[2018-11-01 11:00] LABS: Neutrophils # 18.7 K/mcL (1.6-8.9)
--- NOTE | 2018-11-01 15:06 | Internal Med History&Physical ---
Date of Encounter: 11/01/18 Time of Encounter: 14:35 Assessment and Plan (1) Left lower lobe pneumonia Current visit: Yes Status: Acute Leukocytosis, increased dyspnea, difficulty maintaining saturations, and chest x-ray consistent with left lower lobe infiltrate consistent with diagnosis of pneumonia. Uncertain as to whether this is due to influenza type A or a secondary bacterial infection. He will be covered either way with Tamiflu as well as Levaquin. Clinically he is showing improvement today clinically as well symptomatically. White blood cell count is improved. We will continue the current treatment. Office records states he has had Pneumovax as well as Prevnar 13 vaccinations. Qualifiers: Pneumonia type: due to unspecified organism Qualified Code(s): J18.1 - Lobar pneumonia, unspecified organism (2) Pneumonia of left lower lobe due to influenza A virus Current visit: Yes Status: Acute Despite having had a flu shot earlier this year, his nasopharyngeal swab was positive for influenza A. Surprisingly he has not had a fever. Whether the infiltrate and leukocytosis is due to influenza type a or secondary bacterial infection, he is being treated with Tamiflu as well as Levaquin and showing improvement. We will continue the current regimen. (3) COPD (chronic obstructive pulmonary disease) Current visit: Yes Status: Chronic He has a history chronic COPD and oxygen dependent. He is followed closely at [facility] as he is on the lung transplant list. We will continue his current medications. The present time I do not feel that he needs steroids. Continue with his nebulizer treatments and inhalers. He has been requiring more oxygen per nasal cannula than his baseline at home. Qualifiers: COPD type: unspecified COPD Qualified Code(s): J44.9 - Chronic obstructive pulmonary disease, unspecified (4) HTN (hypertension) Current visit: Yes Status: Chronic Long-standing history of hypertension currently under good control. We will maintain his current medications. Inadvertently, Lopressor was not on his med list from the ER and he became somewhat tachycardic. It is now been started up again. Qualifiers: Hypertension type: essential hypertension Qualified Code(s): I10 - Essential (primary) hypertension (5) Hypoxia Current visit: Yes Status: Acute He is chronically on oxygen at home at 2 L per nasal cannula. He is required more in the past few days and is up to 3 L per nasal cannula. We will continue to monitor his improvement. (6) DVT prophylaxis Current visit: Yes Status: Acute He will be at risk for DVT because of bed rest, pneumonia, decreased ambulation. We have initiated Lovenox. Internal Medicine - H&P: HPI Chief complaint: I got so short of breath and weak Admitted From: Emergency Dept Plans for Post Hospital Care: Home History of present illness: Mr. Gray is a 68 year old male with known history of oxygen dependent COPD and on the transplant list for a lung at [facility], history of hypertension and arthritis said he was well until about the first week of October. He thinks he may have gotten something at [facility] when he was around his family. "I just did not feel up to par". On the following week he had "weakness", thought he had a sinus infection with his ears popping and sinus symptoms and pressure in his head. He tried Mucinex and Tylenol Sinus allergy medication; "it drained my head but not my bronchials". He said he started getting worse each day. He started getting gurgling in his lungs and coughing up some sputum. He thought he got better for 2 or 3 days at that point. Then he said he started to feel worse. He had chills, but did not think he had fever. His appetite declined. He had an increase in his heart rate when he tested his oxygen on pulse oximeter meter. He had difficulties keeping his saturations above 92 or 93% even at 3 L which is up from his usual 2 L per nasal cannula. He said he had "no energy". Moving from room to room his saturation dropped to 79-80% with oxygen. Heart rate would go to 116 range. His sputum changed to being thicker and more yellow. He became more and more short of maggie ath and finally came to the emergency room. In the emergency room he was found to have leukocytosis with white blood cell count nearly 22,000 with left shift, requiring higher amount of oxygen per nasal cannula to maintain saturations in the 90s, chest x-ray with left lower lobe infiltrate, positive nasopharyngeal swab for influenza type A. Unable to maintain appropriate saturations and because of his clinical as well as radiographic findings with his underlying severe COPD history it was recommended that he be admitted to the hospital. Today, day after admission, he states that he is feeling better. Less short of breath, less tachycardia. Still requiring increased oxygen supplementation. 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 History of Arnold-Chiari malformation and surgery 1996 Psychiatric history: no psych history - Past Surgical History Surgical History: cholecystectomy, orthopedic, other, tonsilectomy Additional surgical history: ARNOLD CHIARI MALFORMATION, TORTICOLLIS BOTOX - Social History Smoking Status: Former smoker (Quit approximately 2004) Smokeless Tobacco Status: No Alcohol use: none Drug use: none Occupational status: retired Current living situation: Home - Independent Activity Level: Mostly sedentary (Oxygen dependent) Recent Out of Country Travel Within the Last 8 Weeks: No Exposure or Possible Exposure to Illness During Travel: No - Family History Father Adopted: No Family Member Ethnicity: Non- Living Status: Age at : 68 Hx Family Cardiac Disorders: Yes (CHF) Hx Family Respiratory Disorders: No Hx Family Cancer: No Hx Family GI Disorders: No Hx Family Endocrine Disorder: No Hx Family Neuromuscular Disorders: No Hx Family Neurologic Disorders: No Hx Family HEENT Disorders: No Hx Family Autoimmune Disorders: No Brother Adopted: Leonard: ez Age: 70 Living Status: Still Living Hx Family Cardiac Disorders: Yes (Coronary artery disease) Hx Family Cancer: Yes (Non-Hodgkin's lymphoma) Hx Family Neuromuscular Disorders: Yes Daughter Adopted: No Family Member Ethnicity: Non- Hx Family Cardiac Disorders: Yes (HTN) Hx Family Respiratory Disorders: No Hx Family Cancer: No Hx Family GI Disorders: Yes (GERD, Cholelithiasis) Hx Family Endocrine Disorder: No Hx Family Neuromuscular Disorders: Yes (Migraine) Hx Family Neurologic Disorders: No Hx Family HEENT Disorders: No Hx Family Autoimmune Disorders: No Mother Living Status: Age at : 84 Hx Family Cardiac Disorders: Yes (History of hypertension) Hx Family Neurologic Disorders: Yes (History of Alzheimer's dementia) Internal Medicine - H&P: Meds Finasteride [Propecia] 5 mg PO DAILY 04/09/16 [History] Furosemide [Lasix] 20 mg PO DAILY PRN 04/09/16 [History] Albuterol Neb [Proventil Neb] 2.5 mg IH Q6H 09/27/16 [History] Cetirizine HCl [Zyrtec] 10 mg PO DAILY PRN 09/27/16 [History] Tiotropium [Spiriva] 18 mcg IH DAILY 09/27/16 [History] Ipratropium Neb [Atrovent Neb] 0.5 mg IH Q6HR 08/09/17 [History] Albuterol Sulfate [Proair Hfa] 2 puff IH Q4H PRN 04/17/18 [History] Azithromycin [Zithromax] 250 mg PO DAILY 04/17/18 [History] Budesonide/Formoterol 160/4.5 [Symbicort 160/4.5] 2 puff IH BID 04/17/18 [History] Fluticasone Propionate Nasal [Flonase] 1 each IH DAILY PRN 04/17/18 [History] raNITIdine HCl [Zantac] 150 mg PO DAILY PRN 04/17/18 [History] Buspirone HCl [Buspar] 7.5 mg PO BID 10/31/18 [History] Guaifenesin [Guaifenesin ER] 600 mg PO BID PRN 10/31/18 [History] Acetaminophen [Tylenol] 650 mg PO Q6HR 11/01/18 [History] Budesonide/Formoterol 160/4.5 [Symbicort 160/4.5] 2 puff IH BIDR 11/01/18 [History] Metoprolol [Lopressor] 25 mg PO BID 11/01/18 [History] Potassium Chloride [Klor-Con 10] 10 meq PO BID 11/01/18 [History] Allergy/AdvReac Type Severity Reaction Status Date / Time Penicillins Allergy See Verified 10/31/18 21:31 Comments Sulfa (Sulfonamide AdvReac Muscle Pain Verified 10/31/18 21:31 Antibiotics) - Constitutional Constitutional: anorexia, chills, lethargy, malaise, weakness, no fever(s), no night sweats - EENT Ears: no ear discharge, no ear pain Nose, mouth and throat: sinus pain, sinus pressure, no dry mouth, no sore throat - Cardiovascular Cardiovascular ROS IM: dyspnea, dyspnea on exertion, no chest pain, no irregular heart rhythm, no palpitations Additional comments: He was having tachycardic episodes in the 110's to 120s as noted on his pulse oximeter - Respiratory Respiratory: cough, dyspnea, dyspnea on exertion, chest congestion, excessive phlegm production, change in phlegm color (More thick and yellow recently), no hemoptysis - Gastrointestinal Gastrointestinal: no abdominal pain, no change in bowel habits, no constipation, no diarrhea - Genitourinary Genitourinary ROS male: no difficulty urinating, no dysuria - Musculoskeletal Musculoskeletal ROS IM: as per HPI - Integumentary Integumentary IM: no rash - Neurological Neurological ROS: weakness (Generalized weakness and lethargy), no confusion, no focal weakness - Psychiatric Psychiatric: no difficulty concentrating, no hallucinations - Constitutional Vitals: Temp Pulse Resp BP Pulse Ox 97.8 F 112 16 167/71 91 11/01/18 11:46 11/01/18 11:46 11/01/18 11:46 11/01/18 11:46 11/01/18 11:46 General appearance: Present: A&O X 3, no acute distress, answers questions appropriately - Eye Eye exam: Present: EOMI, PERRL. Absent: scleral icterus - ENT ENT exam: Absent: TM's normal bilaterally (Both ear canals are obscured with cerumen) - Neck Neck exam general surgery: Absent: full ROM (He has decreased range of motion from previous cervical spine surgery. Can only slightly flex from standing position. Slight elevation upward. Less than 10 degrees of lateral turning either side), lymphadenopathy, tenderness, thyromegaly - Respiratory Additional comments: Markedly diminished breath sounds throughout. Virtually no air exchange heard i n lower lobes. Faint crackles heard in the left lower lobe area in the mid axillary line. No wheezing noted. Currently no respiratory distress. - Cardiovascular Cardiovascular exam: Present: distant heart sounds, RRR, +S1, +S2 - GI/Abdominal GI/Abdominal exam: Present: distended (Mildly distended but nontender.), soft, no peritoneal signs. Absent: firm, guarding, mass, rebound, rigid, tenderness - Extremities Exam Extremities exam: Absent: calf tenderness, joint swelling, pedal edema, tenderness Additional comments: Left lower extremity is wrapped in an Unna boot as he has a history of healing laceration to the left anterior camp and managed by wound care - Back Exam Back exam: Absent: CVA tenderness (L), CVA tenderness (R) Additional comments: Chronic fixed cervical spine from previous surgery - Neurological Exam Neurological exam: Present: CN II-XII intact, oriented X3, no focal deficits (Except decreased range of motion of the neck due to cervical fusion) - Psychiatric Psychiatric exam: Present: normal affect, normal mood Internal Med - H&P Results - Labs CBC & Chem 7: 11/01/18 08:34 11/01/18 08:34 Labs: Short CBC 10/31/18 11/01/18 Range/Units 21:50 08:34 WBC 21.7 H 19.8 H (4.3-11.1) K/mcL Hgb 12.7 L 12.5 L (12.9-16.9) g/dL Hct 39.5 39.2 (37.5-50.1) % Plt Count 344 349 (140-400) K/mcL Neutrophils # 17.1 H 18.7 H (1.6-8.9) K/mcL BMP 10/31/18 11/01/18 21:50 08:34 Sodium 137 138 Potassium 3.2 L 3.8 Chloride 97 L 98 Carbon Dioxide 34 H 33 H BUN 18 11 Creatinine 0.59 L 0.52 L Glucose 127 H 247 H Calcium 9.4 9.2 Liver Function 10/31/18 Range/Units 21:50 Total Bilirubin 0.6 (0.3-1.0) mg/dL AST 30 (13-39) Units/L ALT 40 (7-52) Units/L Alkaline Phosphatase 105 H (34-104) Units/L Albumin 4.2 (3.5-5.7) g/dL On admission his white blood cell count was 22,000, now improved down to 19,000. Potassium slightly low at 3.2, he confessed he has not been taking his potassium at home. It has improved now. Glucose elevated to 247, patient had received IV steroids last night. - Impressions ITS Impressions Chest X-Ray 10/31/18 21:30 IMPRESSION: 1. New left basilar lung infiltrate, involving the left lower lobe and lingula, concerning for pneumonia. 2. Pulmonary vascular congestion. D/ / 10/31/2018 22:25:22 Jony Moore MD / [facility] Interpreting Provider: Jony Moore MD
[2018-11-01] MEDS ORDERED: Famotidine 20 MG TABLET PO PRN (16:14)
[2018-11-01] MEDS ORDERED: Loratadine 10 MG TABLET PO PRN (16:18)
[2018-11-01] MEDS ORDERED: Fluticasone Propionate Nasal 50 MCG/SPRAY BOTTLE NS PRN (16:18)
[2018-11-01] MEDS: traMADol 50 MG TABLET PO PRN (18:33)
[2018-11-02] MEDS: traMADol 50 MG TABLET PO PRN ×3 (00:22→19:15)
[2018-11-02 05:00] LABS: Basophils % 0.1 %; Eosinophils % 0.2 %; Hematocrit 37.9 % (37.5-50.1); Hemoglobin 11.8 g/dL (12.9-16.9); Immature Granulocytes % 0.7 % (0-4); Lymphocytes # 1.5 K/mcL (0.6-4.6); Lymphocytes % 9.4 %; Mean Corpuscular HGB Conc 31.1 g/dL (31.6-35.5); Mean Corpuscular Hemoglobin 28.1 pg (28.0-33.3); Mean Corpuscular Volume 90.2 fL (83.0-100.0); Mean Platelet Volume 10.9 fL (9.4-12.4); Monocytes # 1.2 K/mcL (0.0-1.3); Monocytes % 7.1 %; Neutrophils # 13.5 K/mcL (1.6-8.9); Platelet Count 358 K/mcL (140-400); Red Cell Distribution Width 12.8 % (11.5-14.5); Segmented Neutrophils % 82.5 %
[2018-11-02] MEDS: *HR* Enoxaparin 40 MG/0.4 ML SYRINGE SQ SCH (05:02)
[2018-11-02] MEDS: Acetaminophen 325 MG TABLET PO PRN ×3 (05:07→22:13)
[2018-11-02 05:14] LABS: BUN/Creatinine Ratio 26 (6-26); Blood Urea Nitrogen 13 mg/dL (8-23); Calcium 9.1 mg/dL (8.6-10.3); Carbon Dioxide 33 mEq/L (23-29); Chloride 104 mEq/L (98-107); Glucose 121 mg/dL (70-105); Osmolality,Calculated 295 (280-300); Potassium 4.1 mEq/L (3.5-5.1); Sodium 142 mEq/L (136-145); eGFR For Non-African Americans > 60 (> 60)
[2018-11-02] MEDS: Levofloxacin 750 MG/150 ML 750 MG/150 ML BAG IVPB SCH (07:40)
[2018-11-02] MEDS: Finasteride 5 MG TABLET PO SCH (07:41)
[2018-11-02] MEDS: Azithromycin 250 MG TABLET PO SCH (07:42)
[2018-11-02] MEDS: Furosemide 20 MG TABLET PO SCH (07:42)
[2018-11-02] MEDS: Budesonide/Formoterol 160/4.5 1 PUFF INH IH SCH ×2 (07:43→19:54)
[2018-11-02] MEDS: Ipratropium/Albuterol Neb 3 ML IH PRN ×2 (09:39→14:25)
[2018-11-02] MEDS: Tiotropium 18 MCG inhalation IH SCH (11:14)
--- NOTE | 2018-11-02 13:11 | Internal Med Progress Note ---
Date of Encounter: 11/02/18 Time of Encounter: 13:09 - Assessment and plan (1) Left lower lobe pneumonia Current Visit: Yes Status: Acute Assessment and plan: Symptomatically he is showing improvement, increased ADLs, less dyspnea. White blood cell count is improved. Continue with the antibiotics. Qualifiers: Pneumonia type: due to unspecified organism Qualified Code(s): J18.1 - Lobar pneumonia, unspecified organism (2) Pneumonia of left lower lobe due to influenza A virus Current Visit: Yes Status: Acute Assessment and plan: He is feeling better overall. Continue with the Tamiflu. Supportive care and oxygen. (3) COPD (chronic obstructive pulmonary disease) Current Visit: Yes Status: Chronic Assessment and plan: He is less oxygen dependent now. Able to increase his ADLs and go further before he becomes dyspneic or hypoxic. He feels better overall. Qualifiers: COPD type: unspecified COPD Qualified Code(s): J44.9 - Chronic obstructive pulmonary disease, unspecified (4) HTN (hypertension) Current Visit: Yes Status: Chronic Qualifiers: Hypertension type: essential hypertension Qualified Code(s): I10 - Essential (primary) hypertension (5) Hypoxia Current Visit: Yes Status: Acute Assessment and plan: Overall improved. Less oxygen requirements. (6) DVT prophylaxis Current Visit: Yes Status: Acute - Subjective Interval history: Patient states that he is feeling better. He is getting more sputum produced and feels better with that. He was able to ambulate in the hallway, having to stop part way because of dyspnea and hypoxia, but he was able to finish the walk. He can now go 10 feet to the toilet and back without getting as dyspneic as he did on admission. He denies a cardiac type chest pain. Denies any GI symptoms. His appetite is good. No tachycardia. Blood sugars are basically normal now - Constitutional Vitals: Temp Pulse Resp BP Pulse Ox 97.5 F L 83 16 125/66 97 11/02/18 11:18 11/02/18 11:18 11/02/18 11:18 11/02/18 11:18 11/02/18 12:48 General appearance: Present: A&O X 3, no acute distress, answers questions appropriately - Respiratory Respiratory exam: Present: decreased breath sounds (Crackles heard in the left lower lobe area particularly in the posterior axillary line). Absent: accessory muscle use, respiratory distress - Cardiovascular Cardiovascular exam: Present: distant heart sounds, RRR, +S1, +S2 - Extremities Exam Extremities exam: Absent: calf tenderness, pedal edema, tenderness Internal Medicine: Result - Labs CBC & Chem 7: 11/02/18 04:34 11/02/18 04:34 Labs: Short CBC 11/02/18 Range/Units 04:34 WBC 16.3 H (4.3-11.1) K/mcL Hgb 11.8 L (12.9-16.9) g/dL Hct 37.9 (37.5-50.1) % Plt Count 358 (140-400) K/mcL Neutrophils # 13.5 H (1.6-8.9) K/mcL BMP 11/02/18 04:34 Sodium 142 Potassium 4.1 Chloride 104 Carbon Dioxide 33 H BUN 13 Creatinine 0.50 L Glucose 121 H Calcium 9.1 I also count is improving down from 22,000. Electrolytes and renal function are normal. Blood cultures are still pending. Consult Discharge Plan - Plan Referrals: Jasiel Currie MD [Primary Care Provider] -
[2018-11-02] MEDS ORDERED: Furosemide 20 MG TABLET PO ONE (15:26)
[2018-11-03] MEDS: traMADol 50 MG TABLET PO PRN ×4 (02:05→22:18)
[2018-11-03] MEDS: Acetaminophen 325 MG TABLET PO PRN (03:59)
[2018-11-03] MEDS: Ipratropium/Albuterol Neb 3 ML IH PRN ×2 (03:59→08:02)
[2018-11-03] MEDS: *HR* Enoxaparin 40 MG/0.4 ML SYRINGE SQ SCH (04:26)
[2018-11-03 05:46] LABS: Basophils % 0.3 %; Eosinophils # 0.2 K/mcL (0.0-0.6); Eosinophils % 1.4 %; Hematocrit 36.4 % (37.5-50.1); Hemoglobin 11.1 g/dL (12.9-16.9); Immature Granulocytes % 0.4 % (0-4); Mean Corpuscular HGB Conc 30.5 g/dL (31.6-35.5); Mean Corpuscular Hemoglobin 27.9 pg (28.0-33.3); Mean Corpuscular Volume 91.5 fL (83.0-100.0); Mean Platelet Volume 10.1 fL (9.4-12.4); Monocytes # 0.9 K/mcL (0.0-1.3); Monocytes % 7.3 %; Neutrophils # 9.3 K/mcL (1.6-8.9); Platelet Count 351 K/mcL (140-400); Red Blood Count 3.98 M/mcL (4.19-5.50); Red Cell Distribution Width 12.7 % (11.5-14.5); Segmented Neutrophils % 74.6 %
[2018-11-03 06:50] LABS: BUN/Creatinine Ratio 29 (6-26); Blood Urea Nitrogen 15 mg/dL (8-23); Carbon Dioxide 42 mEq/L (23-29); Chloride 94 mEq/L (98-107); Glucose 119 mg/dL (70-105); Osmolality,Calculated 288 (280-300); Potassium 3.6 mEq/L (3.5-5.1); Sodium 138 mEq/L (136-145); eGFR For Non-African Americans > 60 (> 60)
[2018-11-03] MEDS ORDERED: Ondansetron ODT 4 MG TAB.RAPDIS SL PRN (07:36)
--- NOTE | 2018-11-03 07:59 | Internal Med Progress Note ---
Date of Encounter: 11/03/18 Time of Encounter: 07:59 - Assessment and plan (1) Left lower lobe pneumonia Current Visit: Yes Status: Acute Assessment and plan: The pneumonia appears to be improving, but this morning he had vomiting and just was not acting well. A lot of this may be from his increased carbon dioxide. We will get him back on BiPAP, BiPAP every night. I will reassess him in a few hours. Qualifiers: Pneumonia type: due to unspecified organism Qualified Code(s): J18.1 - Lobar pneumonia, unspecified organism (2) Pneumonia of left lower lobe due to influenza A virus Current Visit: Yes Status: Acute Assessment and plan: Improving as above (3) COPD (chronic obstructive pulmonary disease) Current Visit: Yes Status: Chronic Assessment and plan: His carbon dioxide is elevated this morning. Likely because of not being on BiPAP the past few nights. We will resume BiPAP and reevaluate. Qualifiers: COPD type: unspecified COPD Qualified Code(s): J44.9 - Chronic obstructive pulmonary disease, unspecified (4) HTN (hypertension) Current Visit: Yes Status: Chronic Qualifiers: Hypertension type: essential hypertension Qualified Code(s): I10 - Essential (primary) hypertension (5) Hypoxia Current Visit: Yes Status: Acute Assessment and plan: Chronically hypoxic. Able to stay saturated very minimal supplementation now. (6) Carbon dioxide retention Current Visit: Yes Status: Acute Assessment and plan: He is a CO2 retainer. Inadvertently he has been without his BiPAP the past few nights. His will bring the machine in, we will get him on BiPAP and see how he does. (7) DVT prophylaxis Current Visit: Yes Status: Acute - Subjective Interval history: This morning patient is not feeling well. It was reported that he vomited this morning without any prior symptoms. His carbon dioxide supported 43. That is when I found out that he has not been using his BiPAP. I assumed he brought it from home and was using it, but he is been without it for the past few days. He also seems a little bit disheveled and confused this morning and his agreed. "This is because he has been without his BiPAP" as she put it, she has seen this before. He denies a cardiac type chest pain. Denies any shortness of breath. Denies any abdominal pain. He said he felt well after he vomited. He is sitting up in bed. His is basically begging to allow him to go home today. - Constitutional Vitals: Temp Pulse Resp BP Pulse Ox 98.2 F 93 18 144/74 93 11/03/18 02:13 11/03/18 04:05 11/03/18 04:05 11/03/18 02:13 11/03/18 04:05 General appearance: Present: mild distress, A&O X 3 Exam: He seems more disheveled and a bit blurry eyed confused this morning. Does not look toxic. - Respiratory Additional comments: Diminished breath sounds throughout. Few crackles in the bases. No respiratory distress. - Cardiovascular Cardiovascular exam: Present: distant heart sounds, RRR - GI/Abdominal GI/Abdominal exam: Present: diminished bowel sounds, soft. Absent: tenderness Additional comments: Very obese abdomen. Not tight or tympanic. No localizing tenderness. - Extremities Exam Extremities exam: Absent: calf tenderness, pedal edema, tenderness Internal Medicine: Result - Labs CBC & Chem 7: 11/03/18 05:40 11/03/18 05:40 Labs: Short CBC 11/03/18 Range/Units 05:40 WBC 12.5 H (4.3-11.1) K/mcL Hgb 11.1 L (12.9-16.9) g/dL Hct 36.4 L (37.5-50.1) % Plt Count 351 (140-400) K/mcL Neutrophils # 9.3 H (1.6-8.9) K/mcL BMP 11/03/18 05:40 Sodium 138 Potassium 3.6 Chloride 94 L Carbon Dioxide 42 H* BUN 15 Creatinine 0.51 L Glucose 119 H Calcium 9.0 White blood cell count continues to improve. Carbon dioxide elevated at 42. Consult Discharge Plan - Plan Referrals: Jasiel Currie MD [Primary Care Provider] -
[2018-11-03] MEDS: Azithromycin 250 MG TABLET PO SCH ×2 (08:02→12:27)
[2018-11-03] MEDS: Furosemide 20 MG TABLET PO SCH ×2 (08:02→12:24)
[2018-11-03] MEDS: Finasteride 5 MG TABLET PO SCH ×2 (08:02→12:24)
[2018-11-03] MEDS: Levofloxacin 750 MG/150 ML 750 MG/150 ML BAG IVPB SCH (08:03)
[2018-11-03] MEDS: Tiotropium 18 MCG inhalation IH SCH ×2 (09:32→09:43)
[2018-11-03] MEDS: Budesonide/Formoterol 160/4.5 1 PUFF INH IH SCH ×2 (09:42→20:17)
[2018-11-03 13:28] LABS: Estimated Average Glucose 105 mg/dl; Hemoglobin A1C 5.3 %
--- NOTE | 2018-11-03 15:12 | Event Note ---
Date of Encounter: 11/03/18 Time of Encounter: 15:08 I reevaluated him this afternoon. After I left this morning he vomited one more time. He has not had lunch. No more vomiting. No acute abdominal pain. He has been on BiPAP as thinks that he is acting and sounding much better. He denies a cardiac type chest pain. He had muscular type pain in the right periscapular area, it is now gone after Aspercreme and rest. No cardiac type chest pain or palpitations. No diaphoresis. His x-ray has shown some improvement/clearing. However his lung findings show diffuse crackles in the left base, maybe more audible now because of BiPAP. His abdomen is obese and bowel sounds are slightly diminished. No guarding rebound or rigidity. No tympany. Back was evaluated. No midline tenderness. The area that he had pain before was in the right periscapular region and this is now cleared. He does have what feels like edematous skin in the left nuchal posterior occipital area, I think this is from his BiPAP strap. We will reevaluate later Having vomited twice, not eating now, having some carbon monoxide retention he is certainly not well enough to go home as he had hoped for this morning. I discussed with his that he has had a bit of a setback and would not be prudent to be discharged to home even though it is [place].
[2018-11-03] MEDS ORDERED: Furosemide 20 MG TABLET PO ONE (15:26)
[2018-11-03] MEDS ORDERED: *HR* HYDROcodone/Acet 5/325 mg TABLET PO PRN (15:42)
--- NOTE | 2018-11-03 15:46 | Event Note ---
Date of Encounter: 11/03/18 Time of Encounter: 15:45 Patient complains of right periscapular pain. It seems like it came on suddenly since I just saw him a few minutes ago. Feels better when I palpate the rhomboid and periscapular region. There is a cardiac type chest pain or dyspnea. There is no rash. No diaphoresis. He is requesting a muscle relaxer. He has taken this previously. He has had troubles with the right scapular area in the past as well. We will get an EKG to rule out cardiac etiology. Hydrocodone and Flexeril have been ordered after cautioning him regarding drowsiness and other side effects.
[2018-11-03] MEDS: *HR* HYDROcodone/Acet 5/325 mg TABLET PO PRN (18:30)
[2018-11-04] MEDS: Ipratropium/Albuterol Neb 3 ML IH PRN ×2 (05:25→15:15)
[2018-11-04] MEDS: *HR* Enoxaparin 40 MG/0.4 ML SYRINGE SQ SCH (05:25)
[2018-11-04] MEDS: *HR* HYDROcodone/Acet 5/325 mg TABLET PO PRN ×2 (05:32→15:32)
--- NOTE | 2018-11-04 07:46 | Internal Med Progress Note ---
Date of Encounter: 11/04/18 Time of Encounter: 07:27 - Assessment and plan (1) Left lower lobe pneumonia Current Visit: Yes Status: Acute Assessment and plan: Clinically is left lower lobe pneumonia sounds improved. X-ray showing improvement. His oxygenation is doing better. His white blood cell count is coming down, morning laboratories pending. Continue same treatment. Qualifiers: Pneumonia type: due to unspecified organism Qualified Code(s): J18.1 - Lobar pneumonia, unspecified organism (2) Pneumonia of left lower lobe due to influenza A virus Current Visit: Yes Status: Acute Assessment and plan: As above. (3) COPD (chronic obstructive pulmonary disease) Current Visit: Yes Status: Chronic Assessment and plan: Oxygen dependent. No new lung findings today. Using his BiPAP now. Labs pending, rechecking carbon dioxide level. Qualifiers: COPD type: unspecified COPD Qualified Code(s): J44.9 - Chronic obstructive pulmonary disease, unspecified (4) HTN (hypertension) Current Visit: Yes Status: Chronic Assessment and plan: Blood pressure under good control. Qualifiers: Hypertension type: essential hypertension Qualified Code(s): I10 - Essential (primary) hypertension (5) Hypoxia Current Visit: Yes Status: Acute Assessment and plan: Saturations are good with his baseline oxygen at about 2 L. Less oxygen requirements now. (6) Carbon dioxide retention Current Visit: Yes Status: Acute Assessment and plan: Morning lab work is pending. He was on BiPAP for 13 hours as reported by the nurse. He looks a bit sleepy I this morning but not confused. We will see what his levels are doing. (7) Vomiting Current Visit: Yes Status: Acute Assessment and plan: Yesterday he had 2 episodes of vomiting. That now seems to be gone. He had some supper last night. GI symptoms. His abdomen looks a bit distended but is nontender and has normal bowel sounds. He has not had a bowel movement. We will encourage his bowels to move with continued Colace and will add Dulcolax suppository today. We will see how he does with his meals today. Qualifiers: Vomiting type: unspecified Vomiting Intractability: non-intractable Nausea presence: without nausea Qualified Code(s): R11.11 - Vomiting without nausea (8) DVT prophylaxis Current Visit: Yes Status: Acute - Subjective Interval history: Patient states that he did not sleep well last night, but the nurse said he was been on his BiPAP for 13 hours and seemed to rest well. He denies any cardiac type chest pain or palpitations or irregular heartbeat sensation. He states he gets a little bit short of breath, he is not having as much trouble breathing or coughing as he did previously. Intermittently he has had right parascapular pain. He required heating pad and Flexeril and analgesia last night. He states is not bothering him today. No cardiac symptoms. He has not had a bowel move ment. He denies abdominal pain. Yesterday he had nausea and vomiting, no symptoms have recurred since then. He said he did have some supper last night. He has not had breakfast yet this morning Because he had the parascapular pain yesterday, EKG was done which showed right bundle branch block and PVCs. The EKG looked almost identical to ones he had last year. He has had no cardiac type pain. When I asked if he has been up and out of bed much, he said he went for a walk yesterday before he got sick. He wonders whether the bed is giving him the back spasms. - Constitutional Vitals: Temp Pulse Resp BP Pulse Ox 97.8 F 88 16 156/84 90 11/04/18 04:50 11/04/18 04:50 11/04/18 04:50 11/04/18 04:50 11/04/18 04:50 General appearance: Present: A&O X 3, answers questions appropriately Exam: He looks sleepy eyed. But he seems to be appropriate. Sitting up at the edge of bed and in no acute distress - Respiratory Respiratory exam: Present: decreased breath sounds (Decreased breath sounds throughout. I do not hear crackles in the left lower lobe today. No respiratory distress.) - Cardiovascular Cardiovascular exam: Present: RRR, +S1, +S2 Additional comments: Underlying regular rate and rhythm with occasional ectopy. - GI/Abdominal Additional comments: Abdomen appears to be distended/rounded but no guarding or rebound or rigidity. Bowel sounds are normal. It is not taut. No obvious masses. - Extremities Exam Extremities exam: Absent: calf tenderness, pedal edema, tenderness - Back Exam Additional comments: Did not seem to be tender in the back and right scapular area, but he said that it did give him some pain in the right rhomboid region. He looked very comfortable Internal Medicine: Result - Labs CBC & Chem 7: 11/03/18 05:40 11/03/18 05:40 Labs: Morning lab work is pending. - Prior EKG Data EKG comments: 11/04/18 07:51 On my review EKG, he has right bundle branch block and frequent PVCs that are unifocal. This looks almost identical to EKGs done last year - Impressions Impressions Chest X-Ray 11/03/18 08:18 IMPRESSION: Patchy left lower lobe airspace disease with small left pleural effusion slightly improved since prior examination but still persistent. Findings suggest persistent resolving pneumonia. D/ / Carrillo Franklin MD / Carrillo Franklin MD Interpreting Provider: Carrillo Franklin MD Consult Discharge Plan - Plan Referrals: Jasiel Currie MD [Primary Care Provider] -
[2018-11-04] MEDS ORDERED: Bisacodyl 10 MG RECTAL SUPPOSITORY RC ONE (08:00)
[2018-11-04] MEDS: Furosemide 20 MG TABLET PO SCH (08:21)
[2018-11-04] MEDS: Azithromycin 250 MG TABLET PO SCH (08:21)
[2018-11-04] MEDS: Levofloxacin 750 MG/150 ML 750 MG/150 ML BAG IVPB SCH (08:21)
[2018-11-04] MEDS: Finasteride 5 MG TABLET PO SCH (08:21)
[2018-11-04 08:55] LABS: Basophils % 0.4 %; Eosinophils # 0.1 K/mcL (0.0-0.6); Eosinophils % 1.1 %; Hematocrit 37.2 % (37.5-50.1); Hemoglobin 11.5 g/dL (12.9-16.9); Immature Granulocytes % 0.5 % (0-4); Lymphocytes # 1.7 K/mcL (0.6-4.6); Mean Corpuscular HGB Conc 30.9 g/dL (31.6-35.5); Mean Corpuscular Hemoglobin 27.8 pg (28.0-33.3); Mean Corpuscular Volume 90.1 fL (83.0-100.0); Mean Platelet Volume 10.7 fL (9.4-12.4); Monocytes # 1.1 K/mcL (0.0-1.3); Monocytes % 10.7 %; Neutrophils # 7.4 K/mcL (1.6-8.9); Platelet Count 361 K/mcL (140-400); Red Blood Count 4.13 M/mcL (4.19-5.50); Red Cell Distribution Width 12.4 % (11.5-14.5); Segmented Neutrophils % 71.3 %
[2018-11-04 09:15] LABS: BUN/Creatinine Ratio 37 (6-26); Blood Urea Nitrogen 17 mg/dL (8-23); Calcium 9.3 mg/dL (8.6-10.3); Carbon Dioxide 40 mEq/L (23-29); Chloride 90 mEq/L (98-107); Glucose 107 mg/dL (70-105); Osmolality,Calculated 280 (280-300); Potassium 3.3 mEq/L (3.5-5.1); Sodium 134 mEq/L (136-145); eGFR For Non-African Americans > 60 (> 60)
[2018-11-04] MEDS: Budesonide/Formoterol 160/4.5 1 PUFF INH IH SCH ×2 (15:41→23:39)
[2018-11-05] MEDS: *HR* HYDROcodone/Acet 5/325 mg TABLET PO PRN ×2 (00:15→08:23)
[2018-11-05 05:46] LABS: Basophils # 0.1 K/mcL (0.0-0.2); Basophils % 0.5 %; Eosinophils # 0.2 K/mcL (0.0-0.6); Eosinophils % 1.4 %; Hematocrit 37.6 % (37.5-50.1); Hemoglobin 11.5 g/dL (12.9-16.9); Immature Granulocytes % 0.7 % (0-4); Lymphocytes # 2.2 K/mcL (0.6-4.6); Lymphocytes % 16.7 %; Mean Corpuscular HGB Conc 30.6 g/dL (31.6-35.5); Mean Corpuscular Hemoglobin 27.4 pg (28.0-33.3); Mean Corpuscular Volume 89.7 fL (83.0-100.0); Mean Platelet Volume 10.6 fL (9.4-12.4); Monocytes # 1.5 K/mcL (0.0-1.3); Monocytes % 11.1 %; Neutrophils # 9.2 K/mcL (1.6-8.9); Platelet Count 372 K/mcL (140-400); Red Blood Count 4.19 M/mcL (4.19-5.50); Red Cell Distribution Width 12.4 % (11.5-14.5); Segmented Neutrophils % 69.6 %
[2018-11-05 05:59] LABS: BUN/Creatinine Ratio 24 (6-26); Blood Urea Nitrogen 12 mg/dL (8-23); Calcium 9.2 mg/dL (8.6-10.3); Carbon Dioxide 42 mEq/L (23-29); Chloride 97 mEq/L (98-107); Glucose 97 mg/dL (70-105); Osmolality,Calculated 294 (280-300); Potassium 3.1 mEq/L (3.5-5.1); Sodium 142 mEq/L (136-145); eGFR For Non-African Americans > 60 (> 60)
[2018-11-05] MEDS: *HR* Enoxaparin 40 MG/0.4 ML SYRINGE SQ SCH (06:57)
[2018-11-05 06:58] VITALS: BP 178/73
[2018-11-05] MEDS: Finasteride 5 MG TABLET PO SCH (08:13)
[2018-11-05] MEDS: Furosemide 20 MG TABLET PO SCH (08:14)
[2018-11-05] MEDS: Azithromycin 250 MG TABLET PO SCH (08:14)
[2018-11-05] MEDS: Levofloxacin 750 MG/150 ML 750 MG/150 ML BAG IVPB SCH (08:15)
--- NOTE | 2018-11-05 08:53 | Discharge Summary ---
- NOTES TO OUTPATIENT PROVIDER Notes to Outpatient Provider: #1. Discharged with 5 more days of Levaquin. He finished 5 days of Tamiflu. #2. Potassium 3.1 on discharge day and potassium supplement prescribed and will need follow-up level. Date of Encounter: 11/05/18 Time of Encounter: 08:50 - Discharge Diagnosis (1) Left lower lobe pneumonia Priority: Primary Status: Acute Comments: Patient was admitted with left lower lobe pneumonia. Will positive influenza a test this may have been from influenza or more likely secondary bacterial infection. Blood cultures remain negative. He finished 5 days of Tamiflu and 5 days of Levaquin and will be sent home on 5 more days of Levaquin. His chest x- ray showed improvement. On day of discharge his lungs show continued decreased breath sounds in the bases which is chronic for him. No further crackles or pain localizing to the left lower lobe area. His oxygen requirement is back down to 2 L which is his baseline. He continues with BiPAP at night and during the day if needed. His was contacted [facility]/transplant team regarding his hospitalization. Qualifiers: Pneumonia type: due to unspecified organism Qualified Code(s): J18.1 - Lobar pneumonia, unspecified organism (2) Pneumonia of left lower lobe due to influenza A virus Priority: Secondary Status: Acute Comments: His nasopharyngeal swab was positive for influenza type A. He finished 5 days of Tamiflu. Uncertain as to whether his left lower lobe infiltrate was from the influenza or secondary bacterial infection. In any case she was treated for both. He is now showing improvement and now to further treat at home. (3) COPD (chronic obstructive pulmonary disease) Priority: Secondary Status: Chronic Comments: Patient has chronic history of COPD and had increased oxygen requirements for his acute infection. Now is down to his baseline of about 2 L per nasal cannula. He does has CO2 retention. He was apt to increase his oxygen flow on his own and I suspect that cause CO2 retention. Also, inadvertently for the first few nights he was not on his BiPAP. Today his sensorium is good. He is clearheaded. He seems much improved and should be safe to be discharged. Qualifiers: COPD type: unspecified COPD Qualified Code(s): J44.9 - Chronic obstructive pulmonary disease, unspecified (4) HTN (hypertension) Priority: Secondary Status: Chronic Comments: BEYER any history of hypertension, intermittently his blood pressure been elevated. We will maintain his current medication, he will monitor his blood pressures at home. Qualifiers: Hypertension type: essential hypertension Qualified Code(s): I10 - Essential (primary) hypertension (5) Hypoxia Priority: Secondary Status: Acute Comments: On admission he had was hypoxic and required increased oxygenation. Now is back to his baseline of 2 L per nasal cannula. We talked about the goal of 90-92% because of CO2 retention and reiterated his use of BiPAP. (6) Carbon dioxide retention Priority: Secondary Status: Acute Comments: Discussed as above regarding his CO2 retention and BiPAP use and oxygen saturation goals. (7) Vomiting Priority: Secondary Status: Acute Comments: He had 2 episodes of vomiting 2 days ago. That now seems be resolved. His bowels have moved, he has eaten the last 2 meals quite well. He has no nausea or vomiting symptoms or episodes since then. Not sure the etiology, his thinks it may been a stomach virus. In any case it seems to be resolved. Qualifiers: Vomiting type: unspecified Vomiting Intractability: non-intractable Na usea presence: without nausea Qualified Code(s): R11.11 - Vomiting without nausea (8) DVT prophylaxis Priority: Secondary Status: Acute Hospital course: Mr. Gray is a 68 year old male with known oxygen-dependent COPD and on the lung transplant list at [facility], history of hypertension was admitted via the ER with a history of increasing dyspnea. He was found to have positive influenza type A nasopharyngeal test as well as left lower lobe infiltrate. His white count was elevated to 22,000. He was admitted and treated with Tamiflu for the influenza and with Levaquin for presumed secondary bacterial infection and left lower lobe. Over the course of the past 5-6 days his white count is normalizing, has had no fever, oxygen requirements have decreased, and he will be discharged to home with 5 more days of Levaquin. Please see the diagnoses as above. He will follow-up in the office as planned. Discharge discussed with: patient, family - Time Spent with Patient Total time spent providing and/or coordinating discharge services: - Discharge Medications Prescriptions: levoFLOXacin [Levofloxacin] 750 mg PO DAILY 5 Days #5 tablet Potassium Chloride [Klor-Con 10] 10 meq PO BID #60 tablet.er Home Medications: Finasteride [Propecia] 5 mg PO DAILY 04/09/16 [History] Furosemide [Lasix] 20 mg PO DAILY PRN 04/09/16 [History] Albuterol Neb [Proventil Neb] 2.5 mg IH Q6H 09/27/16 [History] Cetirizine HCl [Zyrtec] 10 mg PO DAILY PRN 09/27/16 [History] Tiotropium [Spiriva] 18 mcg IH DAILY 09/27/16 [History] Ipratropium Neb [Atrovent Neb] 0.5 mg IH Q6HR 08/09/17 [History] Albuterol Sulfate [Proair Hfa] 2 puff IH Q4H PRN 04/17/18 [History] Azithromycin [Zithromax] 250 mg PO DAILY 04/17/18 [History] Budesonide/Formoterol 160/4.5 [Symbicort 160/4.5] 2 puff IH BID 04/17/18 [History] Fluticasone Propionate Nasal [Flonase] 1 each IH DAILY PRN 04/17/18 [History] raNITIdine HCl [Zantac] 150 mg PO DAILY PRN 04/17/18 [History] Buspirone HCl [Buspar] 7.5 mg PO BID 10/31/18 [History] Guaifenesin [Guaifenesin ER] 600 mg PO BID PRN 10/31/18 [History] Acetaminophen [Tylenol] 650 mg PO Q6HR 11/01/18 [History] Metoprolol [Lopressor] 25 mg PO BID 11/01/18 [History] Potassium Chloride [Klor-Con 10] 10 meq PO BID #60 tablet.er 11/05/18 [Rx] levoFLOXacin [Levofloxacin] 750 mg PO DAILY 5 Days #5 tablet 11/05/18 [Rx] Allergies/Adverse Reactions: Allergy/AdvReac Type Severity Reaction Status Date / Time Penicillins Allergy See Verified 10/31/18 21:31 Comments Sulfa (Sulfonamide AdvReac Muscle Pain Verified 10/31/18 21:31 Antibiotics) Date of admission: 11/01/18 16:54 Primary care physician: Jasiel Currie MD Discharging clinician: Jasiel Currie Anticipated date of discharge: 11/05/18 - Constitutional Vitals: Temp Pulse Resp BP Pulse Ox 98.0 F 104 20 178/73 95 11/05/18 06:56 11/05/18 06:56 11/05/18 06:56 11/05/18 06:56 11/05/18 06:56 General appearance: Present: A&O X 3, answers questions appropriately Exam: Today he appears be more at his baseline. He is alert and appropriate. He ate breakfast well and increased his functional capacity - Respiratory Additional comments: Diminished breath sounds throughout which is chronic. Very poor air exchange at the bases. No crackles heard at the left lower lobe any longer. - Cardiovascular Cardiovascular exam: Present: RRR, +S1, +S2 - GI/Abdominal Additional comments: His abdomen is distended/obese but no guarding or rebound or rigidity. It is soft and nontender. - Extremities Exam Extremities exam: Absent: calf tenderness, pedal edema, tenderness - Neurological Exam Neurological exam: Present: alert (He appears be appropriate and at his baseline today.) - Patient Status Disposition: Home, Self-Care Condition: Good Functional capacity at discharge: independent ambulation Overall status at discharge: patient is progressing back to baseline - Discharge Instructions Follow Up With: Jasiel Currie MD [Primary Care Provider] - 11/12/18 2:00 pm Forms: ED Satisfaction Letter - Diet and Activity Activity: increase activity as tolerated Diet: advance to your usual diet
[2018-11-05] MEDS: Budesonide/Formoterol 160/4.5 1 PUFF INH IH SCH (08:58)
[2018-11-05] MEDS: Tiotropium 18 MCG inhalation IH SCH (09:00)
--- NOTE | 2018-11-05 16:29 | Electrocardiograph Report ---
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
--- NOTE | 2018-11-05 17:36 | Electrocardiograph Report ---
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
== END 2018-11-05 11:11 | disposition home or self-care (01) | DRG 194 ==
LOC: EMEROOGRE 20:57 → INPGRE 20:57
PROVIDERS: ADMIT Family Medicine; ATTEND Family Medicine